=== PATIENT | female | born 1995 | race Two or more races ===

== ENCOUNTER 2020-07-28 13:53 | Outpatient (REF) | payer OTHER, SELFPAY ==
[2020-07-28 15:00] LABS: COVID-19 Test Negative (Negative)
== END 2020-07-28 13:54 | disposition home or self-care (01) ==
LOC: HO.EMPCOV 13:53
PROVIDERS: Visit Provider Internal Medicine
DX: Z20.828 Contact with and (suspected) exposure to other viral communicable diseases (principal)
CPT/HCPCS: 87635; C9803

== ENCOUNTER 2020-09-02 16:01 | Outpatient (REF) | payer OTHER, SELFPAY ==
[2020-09-02 18:11] LABS: COVID-19 Test Negative (Negative)
== END 2020-09-02 16:02 | disposition home or self-care (01) ==
LOC: HO.EMPCOV 16:01
PROVIDERS: Visit Provider Internal Medicine
DX: Z20.828 Contact with and (suspected) exposure to other viral communicable diseases (principal)
CPT/HCPCS: 87635; C9803

== ENCOUNTER 2020-10-10 10:32 | Outpatient (REF) | payer OTHER, SELFPAY ==
[2020-10-10 10:48] LABS: COVID-19 Test Negative (Negative)
== END 2020-10-10 10:33 | disposition home or self-care (01) ==
LOC: HO.LAB 10:32
PROVIDERS: Visit Provider Internal Medicine
DX: Z20.822 Contact with and (suspected) exposure to COVID-19 (principal)
CPT/HCPCS: 36415; 87635; C9803

== ENCOUNTER 2021-03-23 08:02 | Emergency (ER) | payer OTHER, SELFPAY ==
[2021-03-23 08:05] VITALS: BP 111/88; PULSE 60; RESP 18; TEMP 36.8; O2SAT 99; BMI 27.3
[2021-03-23 08:35] LABS: COVID-19 Test Negative (Negative)
--- NOTE | 2021-03-23 09:21 | ED_ITS ---
HPI - URI/Sore Throat General Chief Complaint: Headache Stated Complaint: migraine, congestion, sore throat Time Seen by Provider: 03/23/21 09:17 Source: patient Mode of arrival: ambulatory Limitations: no limitations History of Present Illness MD elicited complaint: rhinorrhea, nasal congestion, sinus pain and other (Migraine headaches) Onset (ago): day(s) (Three days ago) Consistency: constant Severity: moderate Description of mucous: clear, watery and yellow Able to tolerate fluids by mouth: Yes Exacerbating factors: changing head position and leaning forward Relieving factors: other (Patient prescribed Fioricet for her migraine headaches although only mild symptomatic relief then she starts getting sinus pressure) Associated symptoms: denies other symptoms Treatments prior to arrival: none Related Data Previous Rx's Medication Instructions Recorded amoxicillin-pot clavulanate 1 tab PO BID 10 Days #20 tab 03/23/21 [Augmentin] mlhjxddlzj-offfcnepfetcd-tkyd 1 cap PO Q8H PRN #10 cap 03/23/21 [Fioricet] dexamethasone [Decadron] 6 mg PO ONCE #1 tab 03/23/21 fluticasone propionate [Flonase 1 spray INTRANASAL BID #16 g 03/23/21 Allergy Relief] Allergies Allergy/AdvReac Type Severity Reaction Status Date / Time No Known Allergies Allergy Unverified 05/22/20 16:40 Review of Systems Review of Systems: Constitutional : No Fever, No Chills, No fatigue, No Malaise ENT/Mouth : Positive rhinorrhea/nasal congestion/sinus pressure, No sore throat Eyes: No Discharge Cardiovascular : No Chest Pain, No SOB Respiratory : No Cough, No Sputum, No Wheezing, No Smoke Exposure, No Dyspnea Gastrointestinal : No Nausea, No Vomiting, No Diarrhea Genitourinary : No irregular bleeding, No Dysuria, No Urinary Frequency, No Hematuria, No Urinary Incontinence, No Urgency, No Flank Pain, Musculoskeletal : No Myalgia Skin : No rash Neuro : Positive Headache Yes all other systems are reviewed and are negative [facility] Past Medical History Attestation statement: The following information was validated with the patient. Medical History Asthma COVID Migraines Social History Social History Advance Directives: No Advance Directives Information Provided: No Patient : No Physical Exam Vital Signs: Vital Signs: Last Vital Signs Temp 98.2 F 03/23/21 08:05 Pulse 60 03/23/21 08:05 Resp 18 03/23/21 08:05 BP 111/88 03/23/21 08:05 Pulse Ox 99 03/23/21 08:05 Body Mass Index 27.3 vital signs have been reviewed as normal and appeared to be correct. Blood pressure normal. Heart rate normal. Respiration rate normal. Temperature normal. Oxygen saturation normal. Appearance: Alert. Oriented X3. No acute distress. Head: Normal external exam. Normocephalic. Atraumatic. Eyes: PERRLA. EOMI. Conjunctiva and sclera normal. Eyelids normal. ENT: EAC normal. TM's Normal. Patient with tenderness to palpation to the frontal/ethmoid sinuses. Pharynx normal. Uvula midline. Moist mucous membranes. No trismus noted. No drooling noted. No muffled voice noted. Neck: Normal inspection. Neck supple. FROM. No adenopathy. Thyroid Normal. No meningeal signs. No neck mass noted. CVS: Normal heart rate and rhythm. Heart sound normal. Pulses normal throughout. No murmurs/rales/gallops. Respiratory: No respiratory distress. Painless inspiration. Breath sounds normal. No wheezes/rales/rhonchi noted. Chest nontender. No accessory muscle usage noted or decreased air movement noted. Back: Full range of motion noted. No rashes/lesion/induration/fluctuance or signs of infection noted. Skin: Skin warm and dry. Normal skin color. Normal skin turgor. No rashes/lesions/lacerations noted. Extremities:Extremities exhibit normal range of motion. Extremities nontender. Neuro: Oriented X 3. No motor deficit. No sensory deficit. Reflexes normal. Normal steady gait. No focal neuro deficits noted. Vascular: + radial pulses/+ 2 distal pedal pulses/+2 dorsalis pedis b/l. Normal cap refill. No cyanosis noted to upper extremity nails and lower extremity toes nails. Course Course Course Narrative: 25-year-old female with a past medical history of migraine headaches presenting to the ED with complaints of URI symptoms with intermittent headaches despite taking her Fioricet. Denies recent travel or sick contacts. Denies any other symptoms complaints or concerns at this time. Patient with sinusitis will DC home with symptomatic treatment along with instructions return if any new or worsening symptoms to follow up with primary care provider. Patient understands agrees with this plan. MDM - URI/Sore Throat Medical Records Attestation: I reviewed the patient's medical records. Lab Data Attestation: I reviewed the patient's lab results. Labs: Lab Results 03/23/21 Range/Units 08:10 COVID-19 ([facility]) Negative (Negative) COVID-19 Clin Com See Note Discharge Plan Discharge Clinical Impression: Sinusitis Patient Disposition: Home, Self-Care Instructions: Sinusitis (ED) Prescriptions: New amoxicillin-pot clavulanate [Augmentin] 875-125 mg tablet 1 tab PO BID 10 Days Qty: 20 RF: 0 bjiopdxtbt-vfiznvmqmsini-fgkx [Fioricet] 50-300-40 mg capsule 1 cap PO Q8H PRN (Reason: pain) Qty: 10 RF: 0 dexamethasone [Decadron] 6 mg tablet 6 mg PO ONCE Qty: 1 RF: 0 fluticasone propionate [Flonase Allergy Relief] 50 mcg/actuation spray,suspension 1 spray intranasal BID Qty: 16 RF: 0 Referrals: Sosa Cortes MD [Primary Care Provider] - 2 days Stand Alone Forms: Work/School Release Print Language: Georgian
== END 2021-03-23 09:46 | disposition home or self-care (01) ==
PROVIDERS: Emergency Provider Emergency Medicine; PCP Internal Medicine
DX: J32.9 Chronic sinusitis, unspecified (principal); J45.909 Unspecified asthma, uncomplicated; Z20.822 Contact with and (suspected) exposure to COVID-19
CPT/HCPCS: 36415; 87635; 99283

== ENCOUNTER → 2021-04-30 11:21 | Outpatient (BNVA) | payer SELFPAY | PROVIDERS: PCP Internal Medicine | DX: Z20.822 Contact with and (suspected) exposure to COVID-19 (principal) | CPT/HCPCS: 36415; 87635 ==

== ENCOUNTER 2021-06-27 08:46 | Emergency (ER) | payer OTHER, SELFPAY ==
--- NOTE | ~2021-06-27 | XR_ITS ---
EXAMINATION: XR CHEST CLINICAL INFORMATION: Cough COMPARISON: 11/04/2013 TECHNIQUE: Frontal view of the chest was obtained. FINDINGS: No significant abnormality is noted involving the heart, lungs, mediastinum, bony thorax or soft tissues. XR/XR chest 1V IMPRESSION: Unremarkable examination.
[2021-06-27 08:48] VITALS: BP 115/69; PULSE 80; RESP 16; TEMP 36.8; O2SAT 100; BMI 26.5
--- NOTE | 2021-06-27 09:38 | ED_ITS ---
HPI - General Adult General Chief complaint: Upper Respiratory Symptoms Stated complaint: cough Time Seen by Provider: 06/27/21 09:37 Source: patient Mode of arrival: ambulatory Limitations: no limitations History of Present Illness HPI narrative: 25-year-old fair male with past medical history of childhood asthma is here today for cold symptoms. Patient reports that her symptoms have been going on for the last 2 weeks. Patient started with congestion now she is coughing. Last night patient was waking up coughing all night. She used her father's a rescue inhaler to help with symptoms. Patient denies any shortness of breath, wheezing, dyspnea. Denies any subjective fevers. Patient reports that she spit up ramirez like sputum this morning. Patient denies any chest pain, palpitations, headache, earache, sore throat, difficulty swallowing. Related Data Previous Rx's Medication Instructions Recorded amoxicillin 875 mg-potassium 1 tab PO BID 10 Days #20 tab 03/23/21 clavulanate 125 mg tablet (Augmentin) pzmwketmyf-wchgddyyjgtee-njdyvjqk 1 cap PO Q8H PRN #10 cap 03/23/21 50 mg-300 mg-40 mg capsule (Fioricet) dexamethasone 6 mg tablet 6 mg PO ONCE #1 tab 03/23/21 (Decadron) fluticasone propionate 50 1 spray INTRANASAL BID #16 g 03/23/21 mcg/actuation nasal spray,suspension (Flonase Allergy Relief) albuterol sulfate 90 mcg/actuation 1 inh INHALATION QID PRN #8.5 g 06/27/21 aerosol inhaler azithromycin 250 mg tablet 250 mg PO DAILY 5 Days #4 tab 06/27/21 benzonatate 100 mg capsule 100 mg PO TID PRN #30 cap 06/27/21 (Tessalon Perles) fluticasone propionate 50 1 spray INTRANASAL BID #16 g 06/27/21 mcg/actuation nasal spray,suspension (Flonase Allergy Relief) loratadine 10 mg tablet 10 mg PO DAILY PRN #20 tab 06/27/21 Allergies Allergy/AdvReac Type Severity Reaction Status Date / Time No Known Allergies Allergy Unverified 05/22/20 16:40 Review of Systems Review of Systems: Constitutional : No Weight loss, No Fever, No Chills, No Night Sweats, No Fatigue, No Malaise ENT/Mouth : No Hearing loss, No Ear Pain, Nasal Congestion, No Sinus Pain, No Hoarseness, No sore throat, No Rhinorrhea, No Swallowing Difficulty Eyes: No Eye Pain, No Swelling, No Redness, No Foreign Body, No Discharge, No Vision Changes Cardiovascular : No Chest Pain, No SOB, No Dyspnea on Exertion, No Orthopnea, No Edema, No Palpitations Respiratory : Cough, ramirez Sputum, No Wheezing, No Smoke Exposure, No Dyspnea Gastrointestinal : No Nausea, No Vomiting, No Diarrhea, No Constipation, No abdominal Pain, No Hematochezia, No Melena Genitourinary : no irregular bleeding, No Dysuria, No Urinary Frequency, No Hematuria, No Urinary Incontinence, No Urgency, No Flank Pain, No Urinary Flow Changes, No Hesitancy Musculoskeletal : No joint pain, No Myalgias, No Joint Swelling Skin : No Skin Lesions, No rash Neuro : No Weakness, No Numbness, No Paresthesias, No Loss of Consciousness, No Dizziness, No Headache Psych : No Anxiety/Panic, No Depression, No SI/HI/AH/VH, No Social Issues, Heme/Lymph: No Bruising, No Bleeding,No Lymphadenopathy Endocrine : No Polyuria, No Polydipsia, No Temperature Intolerance Yes all other systems are reviewed and are negative PMFSH Past Medical History Medical History Asthma COVID Migraines Social History Social History Advance Directives: No Patient : No Physical Exam Vital Signs: Vital Signs: Last Vital Signs Temp 98.3 F 06/27/21 08:48 Pulse 80 06/27/21 08:48 Resp 16 06/27/21 08:48 BP 115/69 06/27/21 08:48 Pulse Ox 100 06/27/21 08:48 Body Mass Index 26.5 Const: General: healthy appearing, no acute distress and well developed Nutritional Appearance: well nourished Orientation/consciousness: patient oriented x3 HENMT: Head: Yes normal to inspection, Yes normocephalic and Yes atraumatic Ears: hearing grossly normal bilaterally, right TM abnormal, TM normal on the left and TM abnormal with fluid behind the TM General nose exam: Normal external nose present Mouth: Normal oral and palatal mucosa present Throat: Yes posterior oropharynx normal Eyes: General: appearance normal, both eyes and all related structures Neck: Neck: Yes normal visual inspection, Yes full ROM and Yes trachea midline Thyroid: Thyroid normal Resp: Effort & Inspection: normal respiratory effort and able to speak in complete sentences Auscultation: clear to auscultation bilaterally Cardio: Rate: regular rate Rhythm: regular rhythm GI: Inspection: Yes normal to inspection and No distended Palpation (GI): Soft to palpation, nontender, no guarding and No hepatosplenomegaly present Auscultation: normal bowel sounds Skin: General skin exam: elasticity normal, turgor normal and dry skin Neuro: General: patient oriented x3 Course Course Course Narrative: 25 years old female with past medical history of childhood asthma it is here today for lingering cold like symptoms. Patient reports that her symptoms started with congestion 2 weeks ago. Patient was tested for COVID about a week ago and was negative. Last night patient was unable to sleep due to coughing all night. This morning she was coughing up ramirez sputum. Used her father's rescue inhaler last night. Patient denies having any shortness of breath, dyspnea, difficulty swallowing. Denies any earaches, chest pain, rib pain. Will give her script for Tessalon Perles. Awaiting COVID test. Chest x- ray ordered and is negative. Mild right year infection, will give her script for Flonase, Z-Rich, will send her home with inhaler. Reevaluation(s) Reevaluation #1: Albuterol 2 puffs with spacer. Patient denies any CP, wheezing, dyspnea. Cough controlled with Tessalon Perles. Swab negative for COVID, RSV, flu. Patient will be sent home rest, drink plenty fluids. Take medications as ordered. Finish all your antibiotics. Discussed with patient that if her symptoms will get worse to return to emergency department. She was given the opportunity to ask questions and all questions answered. Medical Decision Making Lab Data Labs: Lab Results 06/27/21 Range/Units 09:12 Coronavirus (PCR) NEGATIVE (Negative) Influenza Type A (PCR) NEGATIVE (Negative) Influenza Type B (PCR) NEGATIVE (Negative) RSV RNA Qual (PCR) NEGATIVE (Negative) Imaging Data Chest x-ray: Attestation: I personally reviewed and interpreted this imaging study as follows: Radiologist's impression: FINDINGS: No significant abnormality is noted involving the heart, lungs, mediastinum, bony thorax or soft tissues. XR/XR chest 1V IMPRESSION: Unremarkable examination. ? Discharge Plan Discharge Clinical Impression: Viral infection Otitis media Qualifiers: Otitis media type: unspecified Chronicity: acute Qualified Code(s): H66.90 - Otitis media, unspecified, unspecified ear Patient Disposition: Home, Self-Care Instructions: Viral Syndrome (ED) Additional Instructions: You were seen here today for upper respiratory symptoms. You have mild ear infection. Please make sure to drink plenty fluids. You were started on antibiotics. You were given script for Tessalon Perles for cough. Flonase use as directed. You may take loratadine daily to decrease the symptoms of congestion. You may return to emergency department if your symptoms will get worse or if you will experience any additional concerning symptoms. Prescriptions: New azithromycin 250 mg tablet 250 mg PO DAILY 5 Days Qty: 4 RF: 0 benzonatate [Tessalon Perles] 100 mg capsule 100 mg PO TID PRN (Reason: cough) Qty: 30 RF: 0 fluticasone propionate [Flonase Allergy Relief] 50 mcg/actuation spray,suspension 1 spray intranasal BID Qty: 16 RF: 0 loratadine 10 mg tablet 10 mg PO DAILY PRN (Reason: allergy symptoms) Qty: 20 RF: 0 albuterol sulfate 90 mcg/actuation HFA aerosol inhaler 1 inh inhalation QID PRN (Reason: shortness of breath or wheezing) Qty: 8.5 RF: 0 No Action amoxicillin-pot clavulanate [Augmentin] 875-125 mg tablet 1 tab PO BID 10 Days Qty: 20 RF: 0 tqkhfqoppj-asqunstbpqxnc-vhgg [Fioricet] 50-300-40 mg capsule 1 cap PO Q8H PRN (Reason: pain) Qty: 10 RF: 0 dexamethasone [Decadron] 6 mg tablet 6 mg PO ONCE Qty: 1 RF: 0 fluticasone propionate [Flonase Allergy Relief] 50 mcg/actuation spray,suspension 1 spray intranasal BID Qty: 16 RF: 0 Referrals: Sosa Cortes MD [Primary Care Provider] - 2 days Stand Alone Forms: Work/School Release Interventions: ED Discharge Assessment Last Done: 06/27/21 11:46 Discharge Date/Time: 06/27/21 11:47
[2021-06-27] MEDS: Azithromycin 500 MG TABLET PO (09:45)
[2021-06-27] MEDS: Benzonatate 100 MG CAPSULE PO (09:45)
[2021-06-27] MEDS: Albuterol Sulfate 90 MCG 8 GM INHALER 2 PUFF INHALE (10:09)
[2021-06-27 10:31] LABS: Influenza A PCR NEGATIVE (Negative); Influenza B PCR NEGATIVE (Negative); Resp Syncy Virus RNA Qual PCR NEGATIVE (Negative); SARS COV2 PCR INHOUSE NEGATIVE (Negative)
== END 2021-06-27 11:47 | disposition home or self-care (01) ==
PROVIDERS: Emergency Provider Emergency Medicine; PCP Internal Medicine
DX: B34.9 Viral infection, unspecified (principal); H66.90 Otitis media, unspecified, unspecified ear; R05.9 Cough, unspecified; Z20.822 Contact with and (suspected) exposure to COVID-19; Z79.899 Other long term (current) drug therapy
CPT/HCPCS: 0241U; 36415; 71045; 99283; 99284

== ENCOUNTER 2021-09-18 08:54 | Outpatient (REF) | payer OTHER, SELFPAY ==
[2021-09-18 09:11] LABS: MANUAL DIFF FLAG NO
[2021-09-18 09:52] LABS: Basophils Percent Auto 0.3 % (0-2); Eosinophils Absolute Auto 0.1 X10*3/uL (0.0-0.4); Eosinophils Percent Auto 2.1 % (0-4); Hematocrit 40.2 % (37.0-47.0); Hemoglobin 13.4 g/dl (12.0-16.0); Imm Gran Abs Auto 0.02 X10*3/uL (0.00-0.03); Imm Gran Pct Auto 0.3 % (0.0-0.4); Lymphocytes Absolute Auto 1.7 X10*3/uL (1.2-4.9); Lymphocytes Percent Auto 26.3 % (20-40); Mean Corpuscular HGB Conc 33.3 g/dl (31.0-35.0); Mean Corpuscular Hemoglobin 30.7 pg (27.0-33.0); Mean Corpuscular Volume 92.2 fL (80.0-98.0); Mean Platelet Volume 12.2 fL (9.4-12.3); Monocytes Absolute Auto 0.5 X10*3/uL (0.1-1.2); Neutrophils Absolute Auto 4.2 x10*3/uL (2.0-8.3); Platelet Count 215 X10*3/uL (160-400); Red Blood Count 4.36 X10*6/uL (4.20-5.50); Red Cell Distribution Width 12.6 % (11.0-16.0); White Blood Count 6.6 X10*3/uL (4.8-10.8)
[2021-09-18 10:45] LABS: Thyroid Stimulating Hormone 1.11 uIU/mL (0.32-4.0)
== END 2021-09-18 08:55 | disposition home or self-care (01) ==
LOC: HO.LAB 08:54
PROVIDERS: PCP Internal Medicine; Visit Provider Obstetrics & Gynecology
DX: R53.83 Other fatigue (principal)
CPT/HCPCS: 36415; 84443; 85025

== ENCOUNTER → 2021-10-14 10:50 | Outpatient (BNVA) | payer OTHER, SELFPAY | PROVIDERS: Visit Provider Surgery | DX: K64.5 Perianal venous thrombosis (principal) | CPT/HCPCS: 46083 ==

== ENCOUNTER → 2021-10-15 09:38 | Outpatient (BNVA) | payer OTHER, SELFPAY | PROVIDERS: Visit Provider Surgery | DX: K64.5 Perianal venous thrombosis (principal) | CPT/HCPCS: 46083 ==

== ENCOUNTER → 2021-11-24 09:52 | Outpatient (BNVA) | payer OTHER, SELFPAY | PROVIDERS: PCP Internal Medicine; Visit Provider Nurse Practitioner Family | DX: K59.00 Constipation, unspecified (principal); K64.5 Perianal venous thrombosis; Z79.899 Other long term (current) drug therapy | CPT/HCPCS: Q3014 ==

== ENCOUNTER 2021-12-23 11:56 | Outpatient (REF) | payer OTHER, SELFPAY ==
[2021-12-23 13:45] LABS: Alanine Aminotransferase 15 U/L (0-31); Albumin Level 4.5 g/dL (3.5-5.0); Alkaline Phosphatase 66 U/L (39-117); Anion Gap 13 (12-20); Aspartate Amino Transferase 20 U/L (5-31); Bilirubin Total 0.6 mg/dL (0.0-1.0); Blood Urea Nitrogen 8 mg/dL (9-16); C Reactive Protein 0.14 mg/dL (< or = 0.50); Carbon Dioxide 26 mmol/L (22-29); Chloride 105 mmol/L (96-108); Estimated Glomerular Filt Rate > 60; Glucose Random 83 mg/dL (60-115); Lipase 27 U/L (8-78); Potassium 4.5 mmol/L (3.3-5.1); Sodium 139 mmol/L (135-145); Total Protein 7.6 g/dL (6.5-8.0)
[2021-12-23 13:53] LABS: TSH reflex Free T4 1.33 uIU/mL (0.32-4.0)
[2021-12-23 14:16] LABS: Folate 8.8 ng/mL (> or = 4.0); Vitamin B12 369 pg/mL (200-900)
[2021-12-25 11:56] LABS: Transglutaminase Ab IgG <1.0 U/mL; Transglutaminase IgA <1.0 U/mL
[2021-12-25 12:16] LABS: H Pylori Breath Test Negative (Negative)
[2021-12-27 14:11] LABS: Vitamin D 25-OH, D2 <4 ng/mL; Vitamin D 25-OH, D3 11 ng/mL; Vitamin D 25-OH, Total 11 ng/mL (30-100)
== END 2021-12-23 11:57 | disposition home or self-care (01) ==
LOC: HO.LAB 11:56
PROVIDERS: PCP Internal Medicine; Visit Provider Nurse Practitioner Family
DX: R10.13 Epigastric pain (principal); R10.9 Unspecified abdominal pain; E55.9 Vitamin D deficiency, unspecified; R19.7 Diarrhea, unspecified; K58.9 Irritable bowel syndrome, unspecified
CPT/HCPCS: 36415; 80053; 82306; 82607; 82746; 83013; 83690; 84443; 86140; 86364

== ENCOUNTER → 2022-01-12 08:51 | Outpatient (BNVA) | payer OTHER, SELFPAY | PROVIDERS: PCP Internal Medicine; Visit Provider Psychiatry & Neurology Neurology | DX: Z13.89 Encounter for screening for other disorder (principal) ==

== ENCOUNTER → 2022-01-13 16:11 | Outpatient (BNVA) | payer OTHER, SELFPAY | PROVIDERS: PCP Internal Medicine; Visit Provider Surgery | DX: K64.9 Unspecified hemorrhoids (principal) | CPT/HCPCS: 46600 ==

== ENCOUNTER 2022-05-31 10:32 | Emergency (ER) | payer OTHER, SELFPAY ==
[2022-05-31 11:18] VITALS: BP 120/61; PULSE 60; RESP 18; TEMP 36; O2SAT 100; BMI 26.4
[2022-05-31 11:42] LABS: Appearance Urine Clear; Color Urine Yellow; Glucose Urine UA Negative (Negative); Leukocyte Esterase Urine Small (1+) (Negative); Nitrite Urine Negative (Negative); UMIC TRIGGER UACC YES; Urine Blood Negative (Negative); Urine Ketones Negative (Negative); Urine Protein Negative (Neg-Trace)
[2022-05-31 11:57] LABS: Bacteria Urine 1+ (None Seen); Hyaline Casts Urine 0-2 /LPF (0-2); UACC Culture Trigger YES; WBC Urine 0-5 /HPF (0-5)
== END 2022-05-31 16:13 | disposition left against medical advice (07) ==
PROVIDERS: Emergency Provider Emergency Medicine; PCP Internal Medicine
DX: R51.9 Headache, unspecified (principal)
CPT/HCPCS: 81001; 87086; 99282

== ENCOUNTER 2022-06-02 10:34 | Outpatient (REF) | payer OTHER, SELFPAY ==
--- NOTE | ~2022-06-02 | MR_ITS ---
MRI OF THE BRAIN WITHOUT IV CONTRAST INDICATION: Headache. COMPARISON: None available. TECHNIQUE: Multiplanar multisequence MR imaging of the brain was obtained without IV contrast. FINDINGS: There is no hydrocephalus, extra-axial surface collection, or herniation. No parenchymal signal abnormality. The major flow voids at the skull base are preserved. There is no acute infarct on diffusion-weighted imaging. There is no intracranial hemorrhage on the gradient recalled echo acquisition. The midline structures are normal. The cerebellar tonsils are normally positioned. The cerebellum and brainstem are normal. The craniocervical junction is normal. Osseous marrow signal intensity is homogenous. The visualized soft tissues are unremarkable. MR/MR head/brain wo con IMPRESSION: Unremarkable noncontrast MRI of the brain.
== END 2022-06-02 10:35 | disposition home or self-care (01) ==
LOC: HO.MRI 10:34
PROVIDERS: Visit Provider Nurse Practitioner Family
DX: G43.109 Migraine with aura, not intractable, without status migrainosus (principal)
CPT/HCPCS: 70551

== ENCOUNTER 2022-08-02 14:35 | Outpatient (REF) | payer OTHER, SELFPAY ==
[2022-08-02 14:54] LABS: Strep A Nucleic Acid Positive (Negative)
== END 2022-08-02 14:36 | disposition home or self-care (01) ==
LOC: HO.LAB 14:35
PROVIDERS: Visit Provider Internal Medicine Cardiovascular Disease
DX: J02.9 Acute pharyngitis, unspecified (principal)
CPT/HCPCS: 36415; 87651

== ENCOUNTER → 2023-02-07 09:56 | Outpatient (BNVA) | payer OTHER, SELFPAY | PROVIDERS: PCP Internal Medicine; Visit Provider Nurse Practitioner Family ==

== ENCOUNTER 2023-04-06 15:08 | Outpatient (AMB) | payer OTHER, SELFPAY ==
--- NOTE | 2023-04-06 15:12 | AM.OFFWIN_ITS ---
Intake Vital Signs 04/06/23 15:15 BP 114/70 Blood Pressure Location Lt brachial Position Sitting Pulse 54 Pulse Source Pulse Oximeter Temp 98.1 F Temp Source Temporal Artery Scan Pulse Oximetry (%) 97 Oxygen Delivery Method Room Air Intake Visit Reasons: [employer], cough (masked)(lobby) Intake Note: Patient here because she had a cold last week w/congestion, now has a dry cough, chest hurts from coughing, and now has less congestion than last week. Patient Tobacco Use Status: Never used Tobacco Allergies erenumab-aooe [From Aimovig Autoinjector] Adverse Reaction (Severe, Verified 04/06/23 15:40) Constipation galcanezumab-gnlm [From Emgality Pen] Adverse Reaction (Intermediate, Verified 04/06/23 15:40) Injection site rash sumatriptan Adverse Reaction (Mild, Verified 04/06/23 15:40) Jaw Pain propranolol Adverse Reaction (Verified 04/06/23 15:40) Bradycardia Medication List - Last Reconciled 04/06/23 by Fernando Mejía MD albuterol sulfate 90 mcg/actuation 1 inh inhalation QID PRN oepxyljojm-raymwuypcbrxb-zcxg 50-300-40 mg (Fioricet) 1 cap PO Q6H PRN 30 days frovatriptan 2.5 mg orally 1 atb qd-bid x's 6 days prn menstrual migraine PRN; 30 days magnesium oxide 400 mg PO BEDTIME 30 days ondansetron HCl 4 mg PO Q6H PRN 30 days riboflavin (vitamin B2) 400 mg (4 x 100 mg) PO DAILY 30 days rizatriptan 10 mg PO Q2H PRN 30 days Do you need a note to return to daycare/school/sports/work: Yes HPI [employer], cough (masked)(lobby) HPI Details 27-year-old female presents to the office for a sick visit. 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 Next a Patient is reporting symptoms of an irritating nonproductive cough for the past 2 weeks. It started off as a sinus cold and all symptoms resolved except the cough. She has history of asthma during her childhood. Currently on no medications. [facility] Medical History (Updated 04/06/23 @ 15:43 by Fernando Mejía MD) Asthma Bleeding hemorrhoids COVID Migraines Thrombosed external hemorrhoid Surgical History (Updated 02/07/23 @ 10:07 by Jodie Mike CMA) History of section [place] teeth extracted Family History Father Asthma Diabetes HTN (hypertension) High cholesterol Acute arthritis Mother Migraine HTN (hypertension) Acute arthritis Maternal Grandfather HTN (hypertension) High cholesterol CHF (congestive heart failure) Stroke Social History Household Members Other:: DAUGHTER Alcohol intake: current Alcohol intake frequency: holidays/special occasions only Patient Tobacco Use Status: Never used Tobacco Current occupational status: employed Current occupation: [employer] Physical Exam Vital Signs: Last Vital Signs Temp 98.1 F 04/06/23 15:15 Pulse 54 04/06/23 15:15 BP 114/70 04/06/23 15:15 Pulse Ox 97 04/06/23 15:15 Oxygen Delivery Method Room Air 04/06/23 15:15 Const General: cooperative and healthy appearing Nutritional Appearance: well nourished Orientation/consciousness: patient oriented x3 Limitations: no limitations HEENT Head: Yes normal to inspection Eyes General: appearance normal, both eyes and all related structures Neck Neck: Yes normal visual inspection Chest Chest palpation & inspection: normal palpation of entire chest wall Resp Effort & Inspection: normal respiratory effort Neuro General: patient oriented x3 Assessment & Plan Assessment & Plan (1) Cough: Code(s): R05.9 - Cough, unspecified Plan: Most likely due to reactive airway disease. Prednisone and albuterol called in. If symptoms do not improve to follow-up here. No antibiotics needed. Coding Level of Care Code Est Pt Level 3 (95510) Diagnoses Cough R05.9
[2023-04-06 15:15] VITALS: BP 114/70; PULSE 54; TEMP 36.7; O2SAT 97
== END 2023-04-06 15:39 | disposition home or self-care (01) ==
PROVIDERS: PCP Internal Medicine; Visit Provider Internal Medicine
DX: R05.9 Cough, unspecified (principal)
CPT/HCPCS: 99213

== ENCOUNTER 2023-04-09 06:17 | Emergency (ER) | payer OTHER, SELFPAY ==
--- NOTE | ~2023-04-09 | XR_ITS ---
EXAMINATION: XR chest 2V CLINICAL INFORMATION: Reason for Exam cough COMPARISON: 2020 TECHNIQUE: XR chest 2V Lungs and Sunni: Both lungs are clear. Pleura: Normal. Costophrenic angles are sharp. No pneumothorax. Heart: The heart is normal in size. Mediastinum: The mediastinum is within normal limits.. Bones: Skeletal structures included are normal for patient's age. XR/XR chest 2V IMPRESSION: No radiographic evidence of acute cardiopulmonary disease.
--- NOTE | 2023-04-09 06:45 | ECG_ITS ---
Test Reason : CHEST PAIN Blood Pressure : / mmHG Vent. Rate : 068 BPM Atrial Rate : 068 BPM P-R Int : 160 ms QRS Dur : 076 ms QT Int : 364 ms P-R-T Axes : 029 002 028 degrees QTc Int : 387 ms Normal sinus rhythm with sinus arrhythmia Normal ECG No previous ECGs available Referred By: Generic ED Physician Electronically Signed By:CRESENCIO ROCK
[2023-04-09 06:59] VITALS: BP 121/72; PULSE 70; RESP 18; TEMP 36.2; O2SAT 99; BMI 26.9
--- NOTE | 2023-04-09 07:29 | ED.CHESTPAIN ---
HPI - Chest Pain General Chief Complaint: Chest Pain Stated Complaint: cough chest pain Time Seen by Provider: 04/09/23 07:23 Source: patient Mode of arrival: ambulatory Limitations: no limitations History of Present Illness HPI narrative: 27 yo female with history of asthma, migraines present to the ER with dry cough, chest tightness since Tuesday. Went to Tuesday and given rx for prednisone 60mg x 3 days. Took one dose Tuesday, one dose . [place] it was causing palpitations, heart racing. and so yesterday she took a decreased dose of 40mg which she felt she tolerated better. Last week she had cough, congestion, cold which she feels resolved. Cough has lingered. She has been using albuterol MDI 4x daily. Did use her Tenrox albuterol nebulizer machine several times. Has not tried any cough medication. No fevers, chills, SOB, leg swelling or leg pain. No recent travel, recent surgeries, OCP use Related Data Previous Rx's Medication Instructions Recorded reciqyidrf-ykopkwovnalrd-yacmimej 1 cap PO Q6H PRN pain 30 days #20 02/07/23 50 mg-300 mg-40 mg capsule caps (Fioricet) frovatriptan 2.5 mg tablet 2.5 mg PO .COMPLEX PRN migraine 02/07/23 headache 30 days #12 tabs magnesium oxide 400 mg (241.3 mg 400 mg PO BEDTIME 30 days #30 tabs 02/07/23 magnesium) tablet ondansetron HCl 4 mg tablet 4 mg PO Q6H PRN nausea and 02/07/23 vomiting 30 days #30 tabs riboflavin (vitamin B2) 100 mg 400 mg PO DAILY 30 days #120 tabs 02/07/23 tablet rizatriptan 10 mg disintegrating 10 mg PO Q2H PRN migraine headache 02/07/23 tablet 30 days #12 tabs albuterol sulfate 90 mcg/actuation 1 inh inhalation QID PRN shortness 04/06/23 aerosol inhaler of breath or wheezing #8.5 grams prednisone 20 mg tablet 60 mg PO DAILY #9 tabs 04/06/23 benzonatate 200 mg capsule 200 mg PO TID PRN cough #20 caps 04/09/23 prednisone 20 mg tablet 40 mg PO DAILY #8 tabs 04/09/23 Allergies Allergy/AdvReac Type Severity Reaction Status Date / Time erenumab-aooe AdvReac Severe Constipatio Verified 04/09/23 07:03 [From Aimovig Autoinjector] n galcanezumab-gnlm AdvReac Intermediate Injection Verified 04/09/23 07:03 [From Emgality Pen] site rash sumatriptan AdvReac Mild Jaw Pain Verified 04/09/23 07:03 propranolol AdvReac Bradycardia Verified 04/09/23 07:03 Review of Systems Review of Systems: Yes all other systems are reviewed and are negative Constitutional: Constitutional: Reports no additional constitutional complaints, Denies body ache(s), Denies chills, Denies fever(s), Denies headache(s) and Denies weakness Eyes: Eyes: Reports no additional eye complaints and Denies change in vision ENT: Reports system reviewed and no additional complaints, except as documented, Denies dizziness, Denies headache(s), Denies nasal congestion, Denies nasal discharge and Denies neck pain Cardiovascular: Cardiovascular: Reports no additional cardiovascular complaints, Reports chest pain, Denies leg edema and Denies dyspnea Respiratory: Respiratory: Reports no additional respiratory complaints, Denies cough and Denies dyspnea Gastrointestinal: Gastrointestinal: Reports no additional gastrointestinal complaints, Denies abdominal pain, Denies diarrhea, Denies nausea and Denies vomiting Genitourinary: Genitourinary: Reports no additional female genitourinary complaints and Denies urinary incontinence Musculoskeletal: Musculoskeletal: Reports no additional musculoskeletal complaints, Denies back pain, Denies arthralgias, Denies joint swelling, Denies neck pain, Denies numbness and Denies tingling Integumentary/Breasts: Skin/Breast: Reports system reviewed and no additional complaints, except as docu and Denies rash Neurologic: Reports system reviewed and no additional complaints, except as documented, Denies Abnormal speech present, Denies dizziness, Denies headache(s), Denies numbness, Denies tingling and Denies weakness PMF Past Medical History Attestation statement: The following information was validated with the patient. Source: old records reviewed and nursing notes reviewed Medical History Asthma Bleeding hemorrhoids COVID Migraines Thrombosed external hemorrhoid Surgical History History of section [place] teeth extracted Family History Family History Father Asthma Diabetes HTN (hypertension) High cholesterol Acute arthritis Mother Migraine HTN (hypertension) Acute arthritis Maternal Grandfather HTN (hypertension) High cholesterol CHF (congestive heart failure) Stroke Social History Social History Household Members Other:: DAUGHTER Alcohol intake: current Alcohol intake frequency: holidays/special occasions only Patient Tobacco Use Status: Never used Tobacco Advance Directives: No Advance Directives Information Provided: No 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: Vital Signs: Last Vital Signs Temp 98.3 F 04/09/23 07:49 Pulse 65 04/09/23 07:49 Resp 14 04/09/23 07:49 BP 114/65 04/09/23 07:49 Pulse Ox 97 04/09/23 07:49 O2 Del Method Room Air 04/09/23 07:49 BMI result Body Mass Index 26.9 Const: General: cooperative, healthy appearing, comfortable and no acute distress Orientation/consciousness: patient oriented x3 Limitations: no limitations HEENT: Head: Yes normal to inspection Ears: hearing grossly normal bilaterally and TM's normal bilaterally General nose exam: Normal external nose present Face and sinus: Yes normal facial exam Mouth: Normal oral and palatal mucosa present Throat: Yes posterior oropharynx normal, Yes tonsils normal and Yes uvula midline Eyes: General: appearance normal, both eyes and all related structures Pupils: Equal, round and reactive pupils present Neck: Neck: Yes normal visual inspection, Yes full ROM, Yes no lymphadenopathy and Yes no meningeal signs Chest: Chest palpation & inspection: normal inspection of the chest Resp: Effort & Inspection: normal respiratory effort Auscultation: clear to auscultation bilaterally Cardio: Rate: regular rate Rhythm: regular rhythm Peripheral pulses: Peripheral pulses 2+ throughout GI: Inspection: Yes normal to inspection Palpation (GI): Soft to palpation and nontender Auscultation: normal bowel sounds Back/Spine/Pelvis: Thoracic/Lumbar Spine: thoracic and lumbar spine normal to inspection Skin: General skin exam: no rashes or lesions noted Neuro: General: patient oriented x3, no meningeal signs, no focal motor deficits and normal sensation to monofilament Cranial nerves: Yes Equal, round and reactive pupils present Cognition (Neuro): normal cognition Speech: No Abnormal speech present Gait exam (Neuro): Normal gait present Motor exam (neuro): 5/5 motor strength present throughout Extrem: General: Yes normal to inspection, Yes no pedal edema and Yes no calf tenderness Course Course Course Narrative: 0830-COVID and flu testing are negative. Chest x-ray shows no signs of pneumonia. Likely asthma exacerbation. Patient will be treated with additional course of prednisone, Tessalon p.r.n.. Reviewed worrisome signs and symptoms of when to return to the emergency room. Comfortable plan for discharge home Medical Decision Making Medical Decision Making MDM Narrative: 27 yo female with history of asthma, migraines presents to the ER with URI which resolved last week now with lingering cough x 6 days with chest tightness despite taking three days of prednisone and using albuterol. On arrival LS CTA, frequent cough noted. VSS. Will check covid/flu testing, CXR Had EKG in triage d/t complaints of chest tightness/palpitations. Differential Diagnosis Differential Diagnoses: The differential diagnosis associated with the presentation includes viral syndrome, asthma exacerbation low concern for PE-PERC 0 Lab Data [facility] Lab Attestation statement: I reviewed the patient's lab results. Labs: Lab Results 04/09/23 04/09/23 Range/Units 07:53 07:53 COVID-19 (MONICA) Negative (Negative) COVID-19 Clin Com See Note Influenza Type A (BEN) Negative (Negative) Influenza Type B (BEN) Negative (Negative) Influenza A & B Note See Note Independent Interpretation I performed an independent interpretation of an: EKG and Plain X-Ray Interpretation: I independently reviewed the EKG which shows NSR with rate 68, normal pr, normal qrs, normal qt I independently reviewed the CXR and agree with the rad report Radiology Impression Discussion of test interpretation with radiology: I have reviewed the radiologist's reading. Radiologist Impression: [address] [address] XRay Report Signed Patient: Shivani Mirza MR#: [id number] : 1995 Acct:[id number] Age/Sex: 27 / F ADM Date: 04/09/23 Loc: HO.ED Attending Dr: Ordering Physician: Alcira France NP Date of Service: 04/09/23 Procedure(s): XR chest 2V Accession Number(s): [id number] cc: Alcira France NP~ EXAMINATION: XR chest 2V CLINICAL INFORMATION: Reason for Exam cough COMPARISON: 2020? TECHNIQUE: XR chest 2V Lungs and Sunni: Both lungs are clear. Pleura: Normal. Costophrenic angles are sharp. No pneumothorax. Heart: The heart is normal in size. Mediastinum: The mediastinum is within normal limits.. Bones: Skeletal structures included are normal for patient's age. XR/XR chest 2V IMPRESSION: No radiographic evidence of acute cardiopulmonary disease. Discharge Plan Discharge Clinical Impression: Asthma exacerbation Patient Disposition: Home, Self-Care Instructions: Asthma (ED) Additional Instructions: Start prednisone tomorrow Chest x-ray is normal Covid and flu testing are negative Continue albuterol as needed Prescriptions: New prednisone 20 mg tablet 40 mg PO DAILY Qty: 8 0RF benzonatate 200 mg capsule 200 mg PO TID PRN (Reason: cough) Qty: 20 0RF No Action prednisone 20 mg tablet 60 mg PO DAILY Qty: 9 0RF albuterol sulfate 90 mcg/actuation HFA aerosol inhaler 1 inh inhalation QID PRN (Reason: shortness of breath or wheezing) Qty: 8.5 0RF frovatriptan 2.5 mg tablet 2.5 mg PO .COMPLEX PRN (Reason: migraine headache) 30 Days Qty: 12 3RF Rx Instructions: 2.5 mg orally 1 atb qd-bid x's 6 days prn menstrual migraine PRN; rizatriptan 10 mg tablet,disintegrating 10 mg PO Q2H PRN (Reason: migraine headache) 30 Days Qty: 12 6RF Rx Instructions: max 2 tabs per day/4 tabs per week oihbpgzpch-jlvucrbizpfcn-bfth [Fioricet] 50-300-40 mg capsule 1 cap PO Q6H PRN (Reason: pain) 30 Days Qty: 20 3RF Rx Instructions: max 2 caps per day/4 caps per week ondansetron HCl 4 mg tablet 4 mg PO Q6H PRN (Reason: nausea and vomiting) 30 Days Qty: 30 3RF riboflavin (vitamin B2) 100 mg tablet 400 mg PO DAILY 30 Days Qty: 120 6RF Rx Instructions: in am magnesium oxide 400 mg (241.3 mg magnesium) tablet 400 mg PO BEDTIME 30 Days Qty: 30 6RF Rx Instructions: may hold for loose stools Referrals: Sosa Cortes MD [Primary Care Provider] - 1 week (as needed)
[2023-04-09 07:49] VITALS: BP 114/65; PULSE 65; RESP 14; TEMP 36.8; O2SAT 97
[2023-04-09 08:18] LABS: COVID-19 Test Negative (Negative); IDNOW Serial# 08D9AD1C; IDNOW Serial# BCCEAD1C; Influenza A Negative (Negative); Influenza B2 Negative (Negative)
== END 2023-04-09 08:41 | disposition home or self-care (01) ==
PROVIDERS: Nurse Practitioner Family; Emergency Provider Emergency Medicine; PCP Internal Medicine
DX: J45.901 Unspecified asthma with (acute) exacerbation (principal); Z20.822 Contact with and (suspected) exposure to COVID-19
CPT/HCPCS: 71046; 87502; 87635; 93005; 99283; 99284

== ENCOUNTER → 2023-04-09 06:45 | Outpatient (BNV) | payer OTHER, SELFPAY | PROVIDERS: Emergency Provider Emergency Medicine; PCP Internal Medicine; Visit Provider Internal Medicine | DX: I49.9 Cardiac arrhythmia, unspecified (principal) | CPT/HCPCS: 93010 ==

== ENCOUNTER → 2023-06-10 08:03 | Outpatient (BNVA) | payer OTHER, SELFPAY | PROVIDERS: PCP Internal Medicine; Visit Provider Nurse Practitioner Family | DX: Z71.9 Counseling, unspecified (principal) | CPT/HCPCS: 99211 ==

== ENCOUNTER 2023-07-05 08:07 | Outpatient (AMB) | payer OTHER, SELFPAY ==
[2023-07-05 08:21] VITALS: BP 120/70; PULSE 68; TEMP 36.6; O2SAT 99; BMI 27.7
--- NOTE | 2023-07-05 08:21 | MHC.OFFWIV ---
Intake Vital Signs 07/05/23 08:21 Height 5 ft Weight 142 lb BMI 27.7 BP 120/70 Blood Pressure Location Lt brachial Position Sitting Pulse 68 Pulse Source Pulse Oximeter Temp 97.8 F Temp Source Temporal Artery Scan Pulse Oximetry (%) 99 Intake Visit Reasons: EP ?Strep Intake Note: pt is here for c/o possible strep Patient Tobacco Use Status: Never used Tobacco Allergies erenumab-aooe [From Aimovig Autoinjector] Adverse Reaction (Severe, Verified 07/05/23 08:58) Constipation galcanezumab-gnlm [From Emgality Pen] Adverse Reaction (Intermediate, Verified 07/05/23 08:58) Injection site rash sumatriptan Adverse Reaction (Mild, Verified 07/05/23 08:58) Jaw Pain propranolol Adverse Reaction (Verified 07/05/23 08:58) Bradycardia Medication List - Last Reconciled 07/05/23 by Fernando Mejía MD albuterol sulfate 90 mcg/actuation 1 inh inhalation QID PRN azithromycin take 500 mg today (day 1), then 250 mg for 4 days (days 2-5) PO lhmefsmvzw-ixlpxeuvtkhbg-ueks 50-300-40 mg (Fioricet) 1 cap PO Q6H PRN 30 days frovatriptan 2.5 mg orally 1 atb qd-bid x's 6 days prn menstrual migraine PRN; 30 days hydrocortisone 2.5% (Anusol-HC) 1 appl [place] BID-QID PRN magnesium oxide 400 mg PO BEDTIME 30 days ondansetron HCl 4 mg PO Q6H PRN 30 days riboflavin (vitamin B2) 400 mg (4 x 100 mg) PO DAILY 30 days rizatriptan 10 mg PO Q2H PRN 30 days Do you need a note to return to daycare/school/sports/work: Yes HPI EP ?Strep HPI Details Patient presents for a sick visit. Reporting symptoms of sinus congestion, sore throat and difficulty swallowing. Low-grade fever. No family member is sick. No recent travel. Patient reports symptoms of malaise and fatigue. 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: Last Vital Signs Temp 97.8 F 07/05/23 08:21 Pulse 68 07/05/23 08:21 BP 120/70 07/05/23 08:21 Pulse Ox 99 07/05/23 08:21 BMI result Body Mass Index 27.7 Const General: cooperative and healthy appearing Nutritional Appearance: well nourished Orientation/consciousness: patient oriented x3 Limitations: no limitations HEENT Head: Yes normal to inspection Eyes General: appearance normal, both eyes and all related structures Neck Neck: Yes normal visual inspection Chest Chest palpation & inspection: normal palpation of entire chest wall Resp Effort & Inspection: normal respiratory effort Neuro General: patient oriented x3 Results AMB Rapid Strep AMB Rapid Strep Positive Last Edit by Yovany Hamilton CMA on 07/05/23 08:32 Results Reviewed Results Reviewed: Laboratory Last Values Strep Scn Rapid Clinic Positive 07/05/23 08:31 Assessment & Plan Assessment & Plan (1) Strep throat: Code(s): J02.0 - Streptococcal pharyngitis Plan Antibiotics ordered. Increase fluid intake. Tylenol for aches and pains. If symptoms worsen, follow-up here for a recheck. Strep test was positive. Note for work given. Orders: Orders AMB Rapid Strep Screen Today Z13.9 - Encounter for screening, unspecified Medications: New azithromycin take 500 mg today (day 1), then 250 mg for 4 days (days 2-5) PO 6 tabs 0RF Coding Level of Care Code Est Pt Level 3 (14895) Diagnoses Strep throat J02.0
== END 2023-07-05 09:16 | disposition home or self-care (01) ==
PROVIDERS: PCP Internal Medicine; Visit Provider Internal Medicine
DX: J02.0 Streptococcal pharyngitis (principal); Z13.9 Encounter for screening, unspecified
CPT/HCPCS: 87880; 99213

== ENCOUNTER 2023-07-08 10:32 | Outpatient (AMB) | payer OTHER, SELFPAY ==
--- NOTE | 2023-07-08 10:36 | A.OFFVIS_ITS ---
Intake Intake Visit Reasons: hemorrhoids Intake Note: This patient presents for an assessment for hemorrhoids. Patient c/o; reports no changes. 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 Accompanied by: Self / Same As Patient Allergies erenumab-aooe [From Aimovig Autoinjector] Adverse Reaction (Severe, Verified 07/08/23 10:36) Constipation galcanezumab-gnlm [From Emgality Pen] Adverse Reaction (Intermediate, Verified 07/08/23 10:36) Injection site rash sumatriptan Adverse Reaction (Mild, Verified 07/08/23 10:36) Jaw Pain propranolol Adverse Reaction (Verified 07/08/23 10:36) Bradycardia Medication List - Last Reconciled 07/08/23 by Johny Mirza MD albuterol sulfate 90 mcg/actuation 1 inh inhalation QID PRN azithromycin take 500 mg today (day 1), then 250 mg for 4 days (days 2-5) PO wfnobvnevf-yawvrxdnjnzhe-smvv 50-300-40 mg (Fioricet) 1 cap PO Q6H PRN 30 days frovatriptan 2.5 mg orally 1 atb qd-bid x's 6 days prn menstrual migraine PRN; 30 days hydrocortisone 2.5% (Anusol-HC) 1 appl [place] BID-QID PRN magnesium oxide 400 mg PO BEDTIME 30 days ondansetron HCl 4 mg PO Q6H PRN 30 days riboflavin (vitamin B2) 400 mg (4 x 100 mg) PO DAILY 30 days rizatriptan 10 mg PO Q2H PRN 30 days HPI hemorrhoids HPI Details 27-year-old female here for hemorrhoid i ssues. She says that she has had this swollen hemorrhoid for the past week now. She describes discomfort. She says that she had pain for the 1st few days. This has since improved. However, she would describe significant prolapse during the day that causes a lot of discomfort. She is known to me for her hemorrhoids. I had done an I and D for most hemorrhoid last year. She has had occasional symptoms with this hemorrhoidal column. She also describes constipation. 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 Review of Systems Const Denies chills and Denies fever(s) Card Denies chest pain, Denies dyspnea and Denies dyspnea on exertion Resp Denies cough, Denies dyspnea and Denies dyspnea on exertion GI Denies hematochezia, Denies change in bowel habits and Reports constipation Denies hematuria Musc Denies back pain and Denies limited range of motion Neuro Denies focal weakness and Denies convulsions Psych Denies depression and Denies mood swings Physical Exam Const General: comfortable and no acute distress Orientation/consciousness: patient oriented x3 Neck Neck: Yes no lymphadenopathy Resp Auscultation: clear to auscultation bilaterally Cardio Rhythm: regular rhythm GI Other: Rectal exam shows a thrombosed hemorrhoid, about 1 cm, external, on the right anterolateral area; anoscopy deferred; prominent external hemorrhoids on the left noted as well, nonthrombosed Palpation (GI): Soft to palpation, nontender and no guarding Neuro General: patient oriented x3 Assessment & Plan Assessment & Plan (1) Thrombosed external hemorrhoid: Code(s): K64.5 - Perianal venous thrombosis Plan: She has another thrombosed external hemorrhoid on the right side. She is past the acute phase. She says that she has no severe pain but describes discomfort. I therefore told her that we will not do an I and D at this time as she has passed acute phase. I recommended continuing with hot Sitz baths. I did explain to her the option of hemorrhoidectomy in view of her recurrent problems. We will remove the hemorrhoidal columns on the left as well as she had problems with this in the past. I discussed the technique of this procedure. I reviewed the risks including but not limited to bleeding, infections, postop pain, as well as the benefits and alternatives. I explained to her what to expect postoperatively. She says she is going to call the office once she decides to proceed down the line. Coding Level of Care Code Est Pt Level 3 (97531) Diagnoses Thrombosed external hemorrhoid K64.5
== END 2023-07-08 10:42 | disposition home or self-care (01) ==
PROVIDERS: PCP Internal Medicine; Visit Provider Surgery
DX: K64.5 Perianal venous thrombosis (principal)
CPT/HCPCS: 99213

== ENCOUNTER → 2023-07-08 10:32 | Outpatient (BNVA) | payer OTHER, SELFPAY | PROVIDERS: PCP Internal Medicine; Visit Provider Surgery ==

== ENCOUNTER 2023-08-01 09:20 | Outpatient (AMB) | payer OTHER, SELFPAY ==
--- NOTE | 2023-08-01 09:20 | A.OFFVIS_ITS ---
Intake Intake Visit Reasons: follow up-LVM Intake Note: follow up visit. no issues or concerns. Allergies erenumab-aooe [From Aimovig Autoinjector] Adverse Reaction (Severe, Verified 08/01/23 09:21) Constipation galcanezumab-gnlm [From Emgality Pen] Adverse Reaction (Intermediate, Verified 08/01/23 09:21) Injection site rash sumatriptan Adverse Reaction (Mild, Verified 08/01/23 09:21) Jaw Pain propranolol Adverse Reaction (Verified 08/01/23 09:21) Bradycardia Medication List - Last Reconciled 08/01/23 by GALO Abdullahi albuterol sulfate 90 mcg/actuation 1 inh inhalation QID PRN fpweodtbtq-pjjipngjeftcl-ueia 50-300-40 mg (Fioricet) 1 cap PO Q6H PRN 30 days hydrocortisone 2.5% (Anusol-HC) 1 appl [place] BID-QID PRN ondansetron HCl 4 mg PO Q6H PRN 30 days rizatriptan 10 mg PO Q2H PRN 30 days HPI HPI Comments History of Present Illness Details 27-yr-old female presents for f/u [employer] sit. Pt continues to struggle w/ hemorrhoids and is trying to eat well and be compliant w/ her bowel regimen. She is overall being more mindful of her migraine triggers- avoiding alcohol, eating regularly, maintaining a good sleep schedule. She is scheduled to have her IUD changed tomorrow- she is hopeful this will reduce her migraine attacks as she has had more migraines since having increased breakthrough periods. She had a recent eye exam- was recently told she has a right eye astigmatism so will try contacts to correct this. Additionally, her eye glass prescription was too strong so that will be adjusted as well. She has had 5 severe migraine days in the last month. Using Rizatriptan prn. She has a more mild headache 3-4 x's per week- manages w/ Tylenol or Advil. 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 Review of Systems Const All systems reviewed & are unremarkable except as noted in HPI and below Physical Exam Const General: cooperative and no acute distress Orientation/consciousness: patient oriented x3 HEENT Head: Yes normocephalic Resp Effort & Inspection: normal respiratory effort and able to speak in complete sentences Neuro General: patient oriented x3 Cognition (Neuro): normal cognition Psych Appearance: grossly normal Mental Status: mental status grossly normal Speech and movement: Normal speech and movement present Affect: normal affect Attitude: cooperative Thought process: Normal thought process present Thought content: Normal thought content present Assessment & Plan Assessment & Plan (1) Chronic migraine with aura: Code(s): G43.109 - Migraine with aura, not intractable, without status migrainosus (2) Menstrual migraine: Code(s): G43.829 - Menstrual migraine, not intractable, without status migrainosus (3) Astigmatism, right: Code(s): H52.201 - Unspecified astigmatism, right eye Plan For acute migraine tx: Continue prn Rizatriptan- note causes some drowsiness. Fioricet prn- sparingly Zofran 4mg prn N/V. Previous tx trials- Nurtec helped some, Sumatriptan- jaw pain. Trudhessa sample- effective but does cause some nasal irritation. For menstrual Migraine: Monitor effect of changing IUD on migraine burden. For migraine prevention tx: Continue trigger avoidance as able. Monitor response to changing glasses prescription, tx'ing astigmatism, and replacing IUD. Hold Riboflavin and Magnesium. Future considerations- Botox, Vyepti 100mg IV q 3 months. Previous tx trials: Amitriptyline- constipation, Propranolol- bradycardia, Topiramate- did not tolerate, Aimovig- severe constipation, Emgality and Ajovy- injection site rash. f/u in 4 months or sooner prn. Telehealth Telehealth Location of provider rendering services: practice address Location of patient: address on file Patient Identification confirmed using: Name, : Yes Telehealth method: video Patient verbally consented to treatment: Yes Patient verbally consented to billing insurance company: Yes Patient informed of any privacy concerns related to visit: Yes Minutes spent on Phone/Video with Pt.: 14 Coding Level of Care Code Tele Est Pt Level 4 (19298) Diagnoses Chronic migraine with aura G43.109 Menstrual migraine G43.829 Astigmatism, right H52.201
== END 2023-08-01 10:49 | disposition home or self-care (01) ==
LOC: HO.HSMS 09:20
PROVIDERS: PCP Internal Medicine; Visit Provider Nurse Practitioner Family
DX: G43.109 Migraine with aura, not intractable, without status migrainosus (principal); G43.829 Menstrual migraine, not intractable, without status migrainosus; H52.201 Unspecified astigmatism, right eye
CPT/HCPCS: 99214

== ENCOUNTER → 2023-08-01 09:20 | Outpatient (BNVA) | payer OTHER, SELFPAY | PROVIDERS: PCP Internal Medicine; Visit Provider Nurse Practitioner Family ==

== ENCOUNTER 2023-08-13 15:33 | Emergency (ER) | payer OTHER, SELFPAY ==
--- NOTE | 2023-08-13 | ECG_ITS ---
Test Reason : CHEST TIGHTNESS Blood Pressure : / mmHG Vent. Rate : 068 BPM Atrial Rate : 068 BPM P-R Int : 132 ms QRS Dur : 088 ms QT Int : 414 ms P-R-T Axes : 037 013 036 degrees QTc Int : 440 ms Normal sinus rhythm with sinus arrhythmia Normal ECG When compared with ECG of 09-APR-2023 06:50, No significant changes seen Referred By: Jose De La Cruz Electronically Signed By:CRESENCIO ROCK
[2023-08-13 15:44] VITALS: BP 107/69; PULSE 69; RESP 19; TEMP 36.4; O2SAT 99; BMI 26.8
--- NOTE | 2023-08-13 15:44 | ED_ITS ---
HPI - Abdominal Pain General Chief Complaint: Nausea/Vomiting/Diarrhea Stated Complaint: vomiting,dehydrated Time Seen by Provider: 08/13/23 16:40 Source: patient Mode of arrival: ambulatory Limitations: no limitations History of Present Illness HPI narrative: This is a 28-year-old female history of sleep disorder, depression, migraines, presenting to the emergency department with complaints of nausea, vomiting status post heavy drinking last night for her birthday, she reports she only had 2 mo he does, she reports the past 12 hours she has not been able to keep anything down. She reports every when she when out with this feeling fine other than her. She thought it was just a hangover however she continues to not be able to keep anything down each time she tries to eat she ends up vomiting. No associated abdominal pain, headache, vision changes, chest pain, shortness of breath, changes in bowel habits or urinary habits Related Data Previous Rx's Medication Instructions Recorded biqakpojqw-zmhzshfaymxju-gdcatstx 1 cap PO Q6H PRN pain 30 days #20 02/07/23 50 mg-300 mg-40 mg capsule caps (Fioricet) ondansetron HCl 4 mg tablet 4 mg PO Q6H PRN nausea and 02/07/23 vomiting 30 days #30 tabs albuterol sulfate 90 mcg/actuation 1 inh inhalation QID PRN shortness 04/06/23 aerosol inhaler of breath or wheezing #8.5 grams rizatriptan 10 mg disintegrating 10 mg PO Q2H PRN migraine headache 05/18/23 tablet 30 days #12 tabs hydrocortisone 2.5 % topical cream 1 appl VA BID-QID PRN hemorrhoids 07/04/23 with perineal applicator #30 grams (Anusol-HC) Allergies Allergy/AdvReac Type Severity Reaction Status Date / Time erenumab-aooe AdvReac Severe Constipatio Verified 08/01/23 09:21 [From Aimovig Autoinjector] n galcanezumab-gnlm AdvReac Intermediate Injection Verified 08/01/23 09:21 [From Emgality Pen] site rash sumatriptan AdvReac Mild Jaw Pain Verified 08/01/23 09:21 propranolol AdvReac Bradycardia Verified 08/01/23 09:21 Review of Systems Review of Systems Constitutional : No Weight loss, No Fever, No Chills, No Fatigue, No Malaise ENT/Mouth : No sore throat, No Rhinorrhea Eyes: No Eye Pain, No Swelling, No Redness Cardiovascular : No Chest Pain, No SOB, No Dyspnea on Exertion, No Orthopnea, No Edema, No Palpitations Respiratory : No Cough, No Sputum, No Wheezing Gastrointestinal : No Nausea, No Vomiting, No Diarrhea, No Constipation, No abdominal Pain, No Hematochezia, No Melena Genitourinary : No Dysuria, No Urinary Frequency, No Hematuria, Musculoskeletal : No joint pain, No Myalgias, No Joint Swelling Skin : No Skin Lesions, No rash Neuro : No Weakness, No Numbness, No Dizziness, No Headache Psych : No Anxiety/Panic, No Depression All other systems reviewed and are negative Yes all other systems are reviewed and are negative [facility] Past Medical History Attestation statement: The following information was validated with the patient. Source: old records reviewed and nursing notes reviewed Medical History Bleeding hemorrhoids Thrombosed external hemorrhoid COVID Asthma Migraines Surgical History [place] teeth extracted History of section Family History Family History Father Asthma Diabetes HTN (hypertension) High cholesterol Acute arthritis Mother Migraine HTN (hypertension) Acute arthritis Maternal Grandfather HTN (hypertension) High cholesterol CHF (congestive heart failure) Stroke Social History Social History Household Members Other:: DAUGHTER Alcohol intake: current Alcohol intake frequency: holidays/special occasions only Patient Tobacco Use Status: Never used Tobacco Smoked in Last 30 Days: No Use of substances other than those prescribed or required for medical reasons: No Advance Directives: No Advance Directives Information Provided: Yes Patient : No 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 Oriented X3.? No acute distress.? Head: Normocephalic, atraumatic, no step-offs or deformities Eyes: Pupils equal, round and reactive to light.? Neck: Normal inspection.? Neck supple.? CVS: Normal heart rate and rhythm.? Pulses normal.? Respiratory: No respiratory distress.? Breath sounds normal.? Abdomen: Soft and nontender.?Normo active bowel sounds Skin: Skin warm and dry.? Normal skin color.? Normal skin turgor.? Extremities: No lower extremity edema.? No calf ttp. 5/5 strength to bilateral upper and lower extremities Back: No midline tenderness, no C-spine tenderness, full range of motion, no CVA tenderness bilaterally Neuro: Oriented X 3.? No motor deficit.? No sensory deficit. CN 2-12 intact Course Course Course Narrative: This is a rapid medical exam. Deferred additional HPI, ROS, PE to primary provider. 28 yo female here with complaints of multiple episodes of vomiting since last evening. Went out with her friends last night and had several alcoholic beverages. No abdominal pain, diarrhea, fevers, chills. LMP 07/16, had IUD placed 2 weeks ago. No sick contact. Will obtain labs, UA, ur preg, viral testing Will give SL zofran VSS Reevaluation(s) Reevaluation #1: CBC with leukocytosis and left shift however I suspect this is from reactivity from nausea and vomiting unlikely infection. Chemistry unremarkable. Patient COVID positive likely contributing to patient's symptoms. Lipase pending. Will wait for urine and urine . Time: 16:56 Medical Decision Making Medical Decision Making [facility] Narrative: 1650 28 yo f presents w/ n/v s/p heavy drinking last night PE benign likely viral illness vs alcohol intoxication/overdose vs pancreatitis. No abdominal pain however low suspicion for acute abdomen mild obstruction. Will rule out metabolic derangements, he UTI in Plan labs, viral testing Will gives fluids and Zofran Differential Diagnosis Differential Diagnoses: The differential diagnosis associated with the presentation includes likely viral illness vs alcohol intoxication/overdose vs pancreatitis. No abdominal pain however low suspicion for acute abdomen mild obstruction. Will rule out metabolic derangements, he UTI in Admission/Observation Consideration of admission/observation: Escalation of care including admission/observation considered Lab Data [facility] Lab Attestation statement: I reviewed the patient's lab results. 08/13/23 15:54 08/13/23 15:54 Labs: Lab Results 08/13/23 Range/Units 15:54 WBC 12.8 H (4.8-10.8) X10*3/uL RBC 4.55 (4.20-5.50) X10*6/uL Hgb 13.8 (12.0-16.0) g/dl Hct 40.9 (37.0-47.0) % MCV 89.9 (80.0-98.0) fL MCH 30.3 (27.0-33.0) pg MCHC 33.7 (31.0-35.0) g/dl RDW 12.6 (11.0-16.0) % Plt Count 251 (160-400) X10*3/uL MPV 11.3 (9.4-12.3) fL Immature Gran % (Auto) 0.3 (0.0-0.4) % Neut % (Auto) 90.9 H (45-73) % Lymph % (Auto) 6.2 L (20-40) % [place] % (Auto) 2.4 (2-11) % Eos % (Auto) 0.0 (0-4) % Baso % (Auto) 0.2 (0-2) % Lymph # (Auto) 0.8 L (1.2-4.9) X10*3/uL [place] # (Auto) 0.3 (0.1-1.2) X10*3/uL Eos # (Auto) 0.0 (0.0-0.4) X10*3/uL Baso # (Auto) 0.0 (0.0-0.2) X10*3/uL Abs Immat Gran (auto) 0.04 H (0.00-0.03) X10*3/uL Absolute Neuts (auto) 11.6 H (2.0-8.3) x10*3/uL Absolute Nucleated RBC 0.000 (0.0-0.012) X10*3/uL Nucleated RBC % (auto) 0.0 (0.0-0.2) /100WBC Smear Tech's Comments VERIFIED Sodium 142 (135-145) mmol/L Potassium 4.4 (3.3-5.1) mmol/L Chloride 108 (96-108) mmol/L Carbon Dioxide 23 (22-29) mmol/L Anion Gap 15 (12-20) BUN 11 (9-16) mg/dL Creatinine 0.72 (0.5-1.4) mg/dL Estim Creat Clear Calc 95.0 Estimated GFR > 60 Random Glucose 85 (60-115) mg/dL Calcium 9.9 (8.4-10.2) mg/dL Total Bilirubin 0.6 (0.0-1.0) mg/dL Direct Bilirubin 0.3 (0.0-0.5) mg/dL AST 21 (5-31) U/L ALT 16 (0-31) U/L Alkaline Phosphatase 68 (39-117) U/L Total Protein 8.0 (6.5-8.0) g/dL Albumin 4.7 (3.5-5.0) g/dL Influenza Type A (PCR) NEGATIVE (Negative) Influenza Type B (PCR) NEGATIVE (Negative) RSV RNA Qual (PCR) NEGATIVE (Negative) SARS-CoV-2 RNA (RT-PCR) POSITIVE A (Negative) Medications Administered Generic Name Dose Route Start Last Admin Trade Name Freq PRN Reason Stop Dose Admin Sodium Chloride 1,000 mls @ 999 mls/hr 08/13/23 17:00 08/13/23 17:00 Ns IV 08/13/23 18:00 999 mls/hr .Q1H1M JORDIN Administration Discontinued Medications Generic Name Dose Route Start Last Admin Trade Name Freq PRN Reason Stop Dose Admin Ondansetron HCl 4 mg 08/13/23 15:44 08/13/23 15:53 Ondansetron Odt 4 Mg Tab.Rapdis TRANSLINGU 08/13/23 15:45 4 mg ONCE ONE Administration Ondansetron HCl 4 mg 08/13/23 16:53 08/13/23 17:05 Ondansetron Hcl 4 Mg/2 Ml Vial IVPUSH 08/13/23 16:54 4 mg ONCE ONE Administration Discharge Plan Discharge Clinical Impression: COVID-19 Patient Disposition: Home, Self-Care Instructions: COVID-19 (Coronavirus Disease 2019) (ED) Additional Instructions: Take your medications as prescribed. If you were prescribed antibiotics today, it is important that you take your medication to their entirety, do not skip any doses, do not finish them early. Today you tested positive for COVID-19. Take Ibuprofen or Tylenol as needed for fevers or body aches. Quarantine for 5 days and ensure you wear a mask. After 5 days you should wear a mask for 5 days after that. Practice social distancing and good hand hygiene. Drink plenty of fluids. Follow-up with your primary care provider this week. Return to the emergency department with new or worsening symptoms. In case of emergency call 911 You can purchase a pulse oximeter from your local pharmacy or grocery store, and monitor your oxygen saturation if it goes below 94% you should return to the emergency department for further evaluation. Prescriptions: No Action rizatriptan 10 mg tablet,disintegrating 10 mg PO Q2H PRN (Reason: migraine headache) 30 Days Qty: 12 6RF Rx Instructions: max 2 tabs per day/4 tabs per week hydrocortisone [Anusol-HC] 2.5 % cream with perineal applicator 1 appl VA BID-QID PRN (Reason: hemorrhoids) Qty: 30 0RF albuterol sulfate 90 mcg/actuation HFA aerosol inhaler 1 inh inhalation QID PRN (Reason: shortness of breath or wheezing) Qty: 8.5 0RF cumhfbdydj-yqjpgtwjcupmq-lwvk [Fioricet] 50-300-40 mg capsule 1 cap PO Q6H PRN (Reason: pain) 30 Days Qty: 20 3RF Rx Instructions: max 2 caps per day/4 caps per week ondansetron HCl 4 mg tablet 4 mg PO Q6H PRN (Reason: nausea and vomiting) 30 Days Qty: 30 3RF Referrals: Physician,Unknown J [Primary Care Provider] - 2 days Stand Alone Forms: Work/School Release
[2023-08-13] MEDS: Ondansetron ODT 4 MG TAB.RAPDIS TRANSLINGU (15:53)
[2023-08-13 16:08] LABS: Basophils Percent Auto 0.2 % (0-2); Hematocrit 40.9 % (37.0-47.0); Hemoglobin 13.8 g/dl (12.0-16.0); Imm Gran Abs Auto 0.04 X10*3/uL (0.00-0.03); Imm Gran Pct Auto 0.3 % (0.0-0.4); Lymphocytes Absolute Auto 0.8 X10*3/uL (1.2-4.9); Lymphocytes Percent Auto 6.2 % (20-40); MANUAL DIFF FLAG SCAN; Mean Corpuscular HGB Conc 33.7 g/dl (31.0-35.0); Mean Corpuscular Hemoglobin 30.3 pg (27.0-33.0); Mean Corpuscular Volume 89.9 fL (80.0-98.0); Mean Platelet Volume 11.3 fL (9.4-12.3); Monocytes Absolute Auto 0.3 X10*3/uL (0.1-1.2); Monocytes Percent Auto 2.4 % (2-11); Neutrophils Absolute Auto 11.6 x10*3/uL (2.0-8.3); Neutrophils Percent Auto 90.9 % (45-73); Platelet Count 251 X10*3/uL (160-400); Red Blood Count 4.55 X10*6/uL (4.20-5.50); Red Cell Distribution Width 12.6 % (11.0-16.0); SCAN SMEAR FLAG 1; White Blood Count 12.8 X10*3/uL (4.8-10.8)
[2023-08-13 16:18] LABS: Alanine Aminotransferase 16 U/L (0-31); Albumin Level 4.7 g/dL (3.5-5.0); Alkaline Phosphatase 68 U/L (39-117); Anion Gap 15 (12-20); Aspartate Amino Transferase 21 U/L (5-31); Bilirubin Direct 0.3 mg/dL (0.0-0.5); Bilirubin Total 0.6 mg/dL (0.0-1.0); Blood Urea Nitrogen 11 mg/dL (9-16); Calcium 9.9 mg/dL (8.4-10.2); Carbon Dioxide 23 mmol/L (22-29); Chloride 108 mmol/L (96-108); Estimated Glomerular Filt Rate > 60; Glucose Random 85 mg/dL (60-115); Potassium 4.4 mmol/L (3.3-5.1); Sodium 142 mmol/L (135-145)
[2023-08-13 16:39] LABS: Influenza A PCR NEGATIVE (Negative); Influenza B PCR NEGATIVE (Negative); Resp Syncy Virus RNA Qual PCR NEGATIVE (Negative); SARS COV2 PCR INHOUSE POSITIVE (Negative)
[2023-08-13 16:46] LABS: SLIDE REVIEW VERIFIED
[2023-08-13 17:00] VITALS: BP 107/59; PULSE 76; RESP 16; TEMP 37.3; O2SAT 100
[2023-08-13] MEDS: 0.9 % Sodium Chloride 1,000 ML 999 ML IV (17:00)
--- NOTE | 2023-08-13 17:00 | PC.NURSE ---
a&ox3, vss and up to date at this time. pt comes in d/t new onset n/v since this am. pt verbalizing lower abdominal discomfort d/t placement of new IUD. pt verbalizes abdominal pain is unrelated to vomiting episodes. 20gIV placed in the left forearm - medications/IV fluids administered per provider order. will obtain urine sample when able. no sob/wob noted. respirations even and unlabored. family bedside. call cooper placed within reach.
[2023-08-13] MEDS: ondansetron HCL 4 MG/2 ML VIAL IVPUSH (17:05)
[2023-08-13 17:13] LABS: Lipase 12 U/L (8-78)
--- NOTE | 2023-08-13 17:40 | PC.NURSE ---
urine obtained/sent to lab. pt provided w/ d/c paperwork. IV removed.
--- NOTE | 2023-08-13 17:46 | PC.NURSE ---
pt received d/c paperwork and starting c/o new onset chest tightness. non-radiating. ekg ordered/being performed by tech.
[2023-08-13 17:48] LABS: Appearance Urine Cloudy; Color Urine Yellow; Glucose Urine UA Negative (Negative); Leukocyte Esterase Urine Negative (Negative); Nitrite Urine Negative (Negative); Specific Gravity - Urine 1.025 (1.005-1.025); Urine Blood Negative (Negative); Urine Ketones >=160 mg/dL (Negative); Urine Protein Negative (Neg-Trace)
[2023-08-13 17:50] LABS: UPreg QC Valid YES; Urine Pregnancy NEGATIVE (NEGATIVE)
[2023-08-13 18:12] LABS: Troponin-I High Sensitivity < 2.7 ng/L (<3.5-17.0)
--- NOTE | 2023-08-13 19:18 | PC.NURSE ---
repeat troponin obtained/sent to lab.
[2023-08-13 19:54] LABS: Troponin-I High Sensitivity < 2.7 ng/L (<3.5-17.0)
== END 2023-08-13 20:27 | disposition home or self-care (01) ==
PROVIDERS: Nurse Practitioner Family; Physician Assistant; Emergency Provider Internal Medicine
DX: U07.1 COVID-19 (principal); R11.2 Nausea with vomiting, unspecified
CPT/HCPCS: 0241U; 36415; 80048; 80076; 81003; 81025; 83690; 84484; 85025; 93005; 96361; 96374; 99285; J2405

== ENCOUNTER → 2023-08-13 17:58 | Outpatient (BNV) | payer OTHER, SELFPAY | PROVIDERS: Emergency Provider Internal Medicine; Visit Provider Internal Medicine | DX: R07.9 Chest pain, unspecified (principal) | CPT/HCPCS: 93010 ==

== ENCOUNTER 2023-11-28 12:54 | Outpatient (AMB) | payer OTHER, SELFPAY ==
[2023-11-28 13:06] VITALS: BP 92/68; PULSE 70; RESP 16; O2SAT 98; BMI 26.4
--- NOTE | 2023-11-28 13:06 | MHC.OFFVIS ---
Intake Vital Signs 11/28/23 13:06 Height 5 ft Weight 135 lb BMI 26.4 BP 92/68 Blood Pressure Location Rt brachial Position Sitting Respiration 16 Pulse 70 Pulse Source Pulse Oximeter Pulse Oximetry (%) 98 Oxygen Delivery Method Room Air Intake Visit Reasons: Follow up Migraines - LVM w/address Intake Note: Pt presents for follow up for Migraines. Machine I Engraver Required: No Allergies erenumab-aooe [From Aimovig Autoinjector] Adverse Reaction (Severe, Verified 11/28/23 13:06) Constipation galcanezumab-gnlm [From Emgality Pen] Adverse Reaction (Intermediate, Verified 11/28/23 13:06) Injection site rash sumatriptan Adverse Reaction (Mild, Verified 11/28/23 13:06) Jaw Pain propranolol Adverse Reaction (Verified 11/28/23 13:06) Bradycardia Medication List - Last Reconciled 11/28/23 by GALO Abdullahi albuterol sulfate 90 mcg/actuation 1 inh inhalation QID PRN mgfqnvmhjk-ngwlnzmejdgtm-vmuz 50-300-40 mg (Fioricet) 1 cap PO Q6H PRN 30 days hydrocortisone 2.5% (Anusol-HC) 1 appl [place] BID-QID PRN hydroxyzine HCl 10 mg PO TID PRN ondansetron 4 mg PO Q6H PRN ondansetron HCl 4 mg PO Q6H PRN 30 days rizatriptan 10 mg PO Q2H PRN 30 days HPI HPI Comments History of Present Illness Details 28-yr-old female presents for f/u visit. Pt reports she has had several recent URIs, and since has been feeling more fatigued. Pt has had her IUD changed- which she thinks helps some, however she still does have her menses and her migraines are worse during her menses. She is still having 2-3 migraine days per week. Rizatriptan can help but not always effectively- and can cause sleepiness. She was tried on Sertraline and prn Hydralazine for episodic anxiety. She did not tolerate sertraline and had a migraine following her 1st dose. Unfortunately her PCP's nurse advised her she could not take her triptan w/in 24 hrs of the sertraline- and she had an extended migraine attack. [facility] Medical History Bleeding hemorrhoids Thrombosed external hemorrhoid COVID Asthma Migraines Surgical History [place] teeth extracted History of section Family History Father Asthma Diabetes HTN (hypertension) High cholesterol Acute arthritis Mother Migraine HTN (hypertension) Acute arthritis Maternal Grandfather HTN (hypertension) High cholesterol CHF (congestive heart failure) Stroke Social History Household Members Other:: DAUGHTER Alcohol intake: current Alcohol intake frequency: holidays/special occasions only Patient Tobacco Use Status: Never used Tobacco 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: Last Vital Signs Pulse 70 11/28/23 13:06 Resp 16 11/28/23 13:06 BP 92/68 11/28/23 13:06 Pulse Ox 98 11/28/23 13:06 Oxygen Delivery Method Room Air 11/28/23 13:06 BMI result Body Mass Index 26.4 Const General: cooperative and no acute distress Orientation/consciousness: patient oriented x3 Resp Effort & Inspection: normal respiratory effort and able to speak in complete sentences Neuro General: patient oriented x3 Cranial nerves: Yes CN's II-XII intact bilaterally Cognition (Neuro): normal cognition Psych Appearance: grossly normal Mental Status: mental status grossly normal Speech and movement: Normal speech and movement present Affect: normal affect Attitude: cooperative Assessment & Plan Assessment & Plan (1) Chronic migraine with aura: Code(s): G43.109 - Migraine with aura, not intractable, without status migrainosus (2) Anxiety: Code(s): F41.9 - Anxiety disorder, unspecified (3) Depression: Code(s): F32.A - Depression, unspecified (4) Fatigue: Code(s): R53.83 - Other fatigue Plan For fatigue and anxiety: Check labs. For acute migraine tx: Continue prn Rizatriptan- note causes some drowsiness. Discussed that if pt does retry a SSRI, she may take triptan while taking a SSRI as risk for serotonin syndrome is low as SSRI and triptan target different serotonin receptor sites. Trial Ubrelvy 100mg prn (max 2 tabs per day). Do not take w/ Fioricet. Fioricet prn- sparingly Zofran 4mg prn N/V. Previous tx trials- Nurtec helped some, Sumatriptan- jaw pain. Trudhessa sample- effective but does cause some nasal irritation. ? For menstrual Migraine: May take Ubrlevy and rizatriptan prn. ? For migraine prevention tx: Continue trigger avoidance as able. Hold Riboflavin and Magnesium. Future considerations- Botox, Vyepti 100mg IV q 3 months, Nerivio neuromodulation device. Previous tx trials: Amitriptyline- constipation, Propranolol- bradycardia, Topiramate- did not tolerate, Aimovig- severe constipation, Emgality and Ajovy- injection site rash. ? f/u in 6 months or sooner prn. Orders: Orders Vitamin D 25-OH (D2 and D3) Today F32.A - Depression, unspecified, F41.9 - Anxiety disorder, unspecified, G43.109 - Migraine with aura, not intractable, without status migrainosus, R53.83 - Other fatigue TSH reflex Free T4 Today F32.A - Depression, unspecified, F41.9 - Anxiety disorder, unspecified, G43.109 - Migraine with aura, not intractable, without status migrainosus, R53.83 - Other fatigue Complete Blood Count Auto Diff Today F32.A - Depression, unspecified, F41.9 - Anxiety disorder, unspecified, G43.109 - Migraine with aura, not intractable, without status migrainosus, R53.83 - Other fatigue Comprehensive Met. Panel Today F32.A - Depression, unspecified, F41.9 - Anxiety disorder, unspecified, G43.109 - Migraine with aura, not intractable, without status migrainosus, R53.83 - Other fatigue Medications: New ubrogepant (Ubrelvy) take at onset of migraine, may repeat in 2hrs (may take w/ Ibuprofen) 50 - 100 mg (0.5 - 1 x 100 mg) PO ONCE 30 days PRN 16 tabs 3RF migraine headache Coding Level of Care Code Est Pt Level 4 (28878) Diagnoses Chronic migraine with aura G43.109 Anxiety F41.9 Depression F32.A Fatigue R53.83
== END 2023-11-28 13:56 | disposition home or self-care (01) ==
PROVIDERS: PCP Internal Medicine; Visit Provider Nurse Practitioner Family
DX: G43.109 Migraine with aura, not intractable, without status migrainosus (principal); F41.9 Anxiety disorder, unspecified; F32.A Depression, unspecified; R53.83 Other fatigue
CPT/HCPCS: 99214

== ENCOUNTER → 2023-11-28 12:54 | Outpatient (BNVA) | payer OTHER, SELFPAY | PROVIDERS: PCP Internal Medicine; Visit Provider Nurse Practitioner Family ==

== ENCOUNTER 2023-12-01 09:03 | Outpatient (REF) | payer OTHER, SELFPAY ==
[2023-12-01 09:25] LABS: IDNOW Serial# 08D9AD1C; Strep A Nucleic Acid Positive (Negative)
== END 2023-12-01 09:04 | disposition home or self-care (01) ==
LOC: HO.LAB 09:03
PROVIDERS: Visit Provider Internal Medicine Cardiovascular Disease
DX: Z13.9 Encounter for screening, unspecified (principal)
CPT/HCPCS: 87651

== ENCOUNTER 2023-12-01 09:12 | Outpatient (REF) | payer OTHER, SELFPAY ==
[2023-12-01 09:25] LABS: MANUAL DIFF FLAG NO
[2023-12-01 09:40] LABS: Basophils Percent Auto 0.3 % (0-2); Eosinophils Absolute Auto 0.1 X10*3/uL (0.0-0.4); Eosinophils Percent Auto 1.3 % (0-4); Hematocrit 40.5 % (37.0-47.0); Hemoglobin 13.7 g/dl (12.0-16.0); Imm Gran Abs Auto 0.03 X10*3/uL (0.00-0.03); Imm Gran Pct Auto 0.3 % (0.0-0.4); Lymphocytes Absolute Auto 1.4 X10*3/uL (1.2-4.9); Lymphocytes Percent Auto 14.4 % (20-40); Mean Corpuscular HGB Conc 33.8 g/dl (31.0-35.0); Mean Corpuscular Hemoglobin 31.4 pg (27.0-33.0); Mean Corpuscular Volume 92.7 fL (80.0-98.0); Mean Platelet Volume 11.4 fL (9.4-12.3); Monocytes Absolute Auto 0.6 X10*3/uL (0.1-1.2); Neutrophils Absolute Auto 7.8 x10*3/uL (2.0-8.3); Neutrophils Percent Auto 77.7 % (45-73); Platelet Count 243 X10*3/uL (160-400); Red Blood Count 4.37 X10*6/uL (4.20-5.50); Red Cell Distribution Width 12.5 % (11.0-16.0)
[2023-12-01 10:17] LABS: Alanine Aminotransferase 17 U/L (0-31); Albumin Level 4.1 g/dL (3.5-5.0); Alkaline Phosphatase 75 U/L (39-117); Anion Gap 12 (12-20); Aspartate Amino Transferase 17 U/L (5-31); Bilirubin Total 0.4 mg/dL (0.0-1.0); Blood Urea Nitrogen 12 mg/dL (9-16); Calcium 9.6 mg/dL (8.4-10.2); Carbon Dioxide 26 mmol/L (22-29); Chloride 107 mmol/L (96-108); Estimated Glomerular Filt Rate > 60; Glucose Random 90 mg/dL (60-115); Potassium 4.7 mmol/L (3.3-5.1); Sodium 140 mmol/L (135-145); Total Protein 7.4 g/dL (6.5-8.0)
[2023-12-01 10:35] LABS: TSH reflex Free T4 1.17 uIU/mL (0.32-4.0)
[2023-12-05 16:14] LABS: Vitamin D 25-OH, D2 <4 ng/mL; Vitamin D 25-OH, D3 21 ng/mL; Vitamin D 25-OH, Total 21 ng/mL (30-100)
== END 2023-12-01 09:13 | disposition home or self-care (01) ==
LOC: HO.LAB 09:12
PROVIDERS: PCP Internal Medicine; Visit Provider Nurse Practitioner Family
DX: F41.9 Anxiety disorder, unspecified (principal); G43.109 Migraine with aura, not intractable, without status migrainosus; F32.A Depression, unspecified; R53.83 Other fatigue
CPT/HCPCS: 36415; 80053; 82306; 84443; 85025

== ENCOUNTER 2023-12-13 08:06 | Outpatient (AMB) | payer OTHER, SELFPAY ==
[2023-12-13 08:08] VITALS: BP 110/70; PULSE 95; TEMP 37.7; O2SAT 96
--- NOTE | 2023-12-13 08:08 | MHC.OFFWIV ---
Intake Vital Signs 12/13/23 08:08 Height 5 ft BP 110/70 Blood Pressure Location Lt brachial Position Sitting Pulse 95 Pulse Source Pulse Oximeter Temp 100 F Temp Source Oral Pulse Oximetry (%) 96 Oxygen Delivery Method Room Air Intake Visit Reasons: EP body aches fever headache child w/ flu Intake Note: pt is here for c.o body aches, fever, headache. patient states her child is sick with the flu Patient Tobacco Use Status: Never used Tobacco Allergies erenumab-aooe [From Aimovig Autoinjector] Adverse Reaction (Severe, Verified 12/13/23 08:20) Constipation galcanezumab-gnlm [From Emgality Pen] Adverse Reaction (Intermediate, Verified 12/13/23 08:20) Injection site rash sumatriptan Adverse Reaction (Mild, Verified 12/13/23 08:20) Jaw Pain propranolol Adverse Reaction (Verified 12/13/23 08:20) Bradycardia Medication List - Last Reconciled 12/13/23 by Fernando Mejía MD albuterol sulfate 90 mcg/actuation 1 inh inhalation QID PRN richanrxsz-fyudavpxzybhl-cblv 50-300-40 mg (Fioricet) 1 cap PO Q6H PRN 30 days cholecalciferol (vitamin D3) 1,250 mcg PO QWEEK 12 weeks hydrocortisone 2.5% (Anusol-HC) 1 appl [place] BID-QID PRN hydroxyzine HCl 10 mg PO TID PRN ondansetron HCl 4 mg PO Q6H PRN 30 days rizatriptan 10 mg PO Q2H PRN 30 days Do you need a note to return to daycare/school/sports/work: Yes HPI EP body aches fever headache child w/ flu HPI Details Patient presents for a sick visit. Reporting symptoms of sinus congestion, sore throat and difficulty swallowing. Low-grade fever. No family member is sick. No recent travel. Patient reports symptoms of malaise and fatigue. Patient's daughter tested positive for the flu 2 days ago. She is 8 years old. [facility] Medical History Bleeding hemorrhoids Thrombosed external hemorrhoid COVID Asthma Migraines Surgical History [place] teeth extracted History of section Family History Father Asthma Diabetes HTN (hypertension) High cholesterol Acute arthritis Mother Migraine HTN (hypertension) Acute arthritis Maternal Grandfather HTN (hypertension) High cholesterol CHF (congestive heart failure) Stroke Social History Household Members Other:: DAUGHTER Alcohol intake: current Alcohol intake frequency: holidays/special occasions only Patient Tobacco Use Status: Never used Tobacco 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: Last Vital Signs Temp 100 F 12/13/23 08:08 Pulse 95 12/13/23 08:08 BP 110/70 12/13/23 08:08 Pulse Ox 96 12/13/23 08:08 Oxygen Delivery Method Room Air 12/13/23 08:08 Const General: cooperative and healthy appearing Nutritional Appearance: well nourished Orientation/consciousness: patient oriented x3 Limitations: no limitations HEENT Head: Yes normal to inspection Eyes General: appearance normal, both eyes and all related structures Neck Neck: Yes normal visual inspection Chest Chest palpation & inspection: normal palpation of entire chest wall Resp Effort & Inspection: normal respiratory effort Neuro General: patient oriented x3 Assessment & Plan Assessment & Plan (1) Upper respiratory tract infection: Code(s): J06.9 - Acute upper respiratory infection, unspecified Plan: . Increase fluid intake. Tylenol for aches and pains. If symptoms worsen, follow-up here for a recheck. Antivirals called in. Will call with results of flu swab Orders: Orders SARS-CoV2/FLU/RSV Today R43.9 - Unspecified disturbances of smell and taste Coding Level of Care Code Est Pt Level 3 (00806) Diagnoses Upper respiratory tract infection J06.9
== END 2023-12-13 08:53 | disposition home or self-care (01) ==
PROVIDERS: PCP Internal Medicine; Visit Provider Internal Medicine
DX: J06.9 Acute upper respiratory infection, unspecified (principal)
CPT/HCPCS: 99213

== ENCOUNTER 2023-12-13 10:27 | Outpatient (REF) | payer OTHER, SELFPAY ==
[2023-12-13 11:25] LABS: Influenza A PCR NEGATIVE (Negative); Influenza B PCR POSITIVE (Negative); Resp Syncy Virus RNA Qual PCR NEGATIVE (Negative); SARS COV2 PCR INHOUSE NEGATIVE (Negative)
== END 2023-12-13 10:28 | disposition home or self-care (01) ==
LOC: HO.LNP 10:27
PROVIDERS: Visit Provider Internal Medicine
DX: R43.9 Unspecified disturbances of smell and taste (principal)
CPT/HCPCS: 0241U

== ENCOUNTER 2023-12-17 17:18 | Emergency (ER) | payer OTHER, SELFPAY | END 2023-12-17 18:54 | disposition left against medical advice (07) | PROVIDERS: Emergency Provider Emergency Medicine | DX: Z53.21 Procedure and treatment not carried out due to patient leaving prior to being seen by health care provider (principal); R53.1 Weakness; R07.89 Other chest pain; R05.9 Cough, unspecified ==

== ENCOUNTER 2024-05-30 08:02 | Outpatient (AMB) | payer OTHER, SELFPAY ==
--- NOTE | 2024-05-30 08:03 | MHC.OFFVIS ---
Vital Signs 05/30/24 08:04 Height 5 ft Weight 148 lb BMI 28.9 BP 110/72 Blood Pressure Location Rt brachial Position Sitting Intake Visit Reasons: Follow up Migraines Intake Note: patient presents for follow up. patient gets three migraines a week treatment works but makes her super sleepy. Allergies erenumab-aooe [From Aimovig Autoinjector] Adverse Reaction (Severe, Verified 05/30/24 08:07) Constipation galcanezumab-gnlm [From Emgality Pen] Adverse Reaction (Intermediate, Verified 05/30/24 08:07) Injection site rash sumatriptan Adverse Reaction (Mild, Verified 05/30/24 08:07) Jaw Pain propranolol Adverse Reaction (Verified 05/30/24 08:07) Bradycardia Medication List - Last Reconciled 05/30/24 by GALO Abdullahi albuterol sulfate 90 mcg/actuation 1 inh inhalation QID PRN ichgtrvtfs-qptjsoitgkxsv-vgzg 50-300-40 mg (Fioricet) 1 cap PO Q6H PRN 30 days cholecalciferol (vitamin D3) 1,250 mcg PO QWEEK 12 weeks hydrocortisone 2.5% (Anusol-HC) 1 appl VA BID-QID PRN hydroxyzine HCl 10 mg PO TID PRN ondansetron HCl 4 mg PO Q6H PRN 30 days oseltamivir (Tamiflu) 75 mg PO BID 5 days rizatriptan 10 mg PO Q2H PRN 30 days HPI Comments Details: 28-yr-old female presents for f/u visit. Pt denies any significant interval medical changes. Pt notes increased stress and poor sleep recently r/t her custody issues w/ her dtr's father., which can trigger headaches. Pt is having 2-3 migraines days per week. Rizatriptan can help but not always effectively- and can cause sleepiness so cannot always take when at work. Using Fioricet prn. Ubrelvy was not effective- but believes she likely took Fiorcet in close proximity to trying the Ubrelvy. She is compliant w/ Vit D supplement. She does still struggle w/ constipation. 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 [employer] Medical History Bleeding hemorrhoids Thrombosed external hemorrhoid COVID Asthma Migraines Surgical History [place] teeth extracted History of section Family History Father Asthma Diabetes HTN (hypertension) High cholesterol Acute arthritis Mother Migraine HTN (hypertension) Acute arthritis Maternal Grandfather HTN (hypertension) High cholesterol CHF (congestive heart failure) Stroke Social History Household Members Other:: DAUGHTER Alcohol intake: current Alcohol intake frequency: holidays/special occasions only Patient Tobacco Use Status: Never used Tobacco Current occupational status: employed Current occupation: [employer] Physical Exam Vital Signs: Last Vital Signs BP 110/72 05/30/24 08:04 BMI result Body Mass Index 28.9 Const General: cooperative and no acute distress Orientation/consciousness: patient oriented x3 Resp Effort & Inspection: normal respiratory effort and able to speak in complete sentences Neuro General: patient oriented x3 Cranial nerves: Yes CN's II-XII intact bilaterally Cognition (Neuro): normal cognition Psych Appearance: grossly normal Mental Status: mental status grossly normal Speech and movement: Normal speech and movement present Affect: normal affect Attitude: cooperative Assessment & Plan Assessment & Plan (1) Migraines: Code(s): G43.909 - Migraine, unspecified, not intractable, without status migrainosus Category: Medical (2) Menstrual migraine: Code(s): G43.829 - Menstrual migraine, not intractable, without status migrainosus Category: Medical (3) Vitamin D deficiency: Code(s): E55.9 - Vitamin D deficiency, unspecified Category: Medical Plan For fatigue and anxiety: Continue Vit D supplement. Recheck Vit D level. Pt would benefit from re-trying psychotherapy- info given on [employer] Increase physical activity- will resume using gym at work ? For acute migraine tx: Continue prn Rizatriptan- note causes some drowsiness. Thus, trial Eletriptan 20-40mg prn in hopes this is better tolerated. Hold Ubrelvy 100mg prn (max 2 tabs per day)- ineffective but question if trial was seperated enough from Fioricet use. Fioricet prn- sparingly Zofran 4mg prn N/V. Previous tx trials- Nurtec helped some, Sumatriptan- jaw pain. Trudhesa sample- effective but does cause some nasal irritation. ? For menstrual Migraine: May rizatriptan prn. Future considerations- Frovatriptan. ? For migraine prevention tx: Continue trigger avoidance as able. Trial Candesartan 4mg qd- monitor for lightheadedness. Future considerations- Botox, Vyepti 100mg IV q 3 months, Nerivio neuromodulation device. Previous tx trials: Amitriptyline- constipation, Propranolol- bradycardia, Topiramate- did not tolerate, Aimovig- severe constipation, Emgality and Ajovy- injection site rash. ? f/u in 6 months or sooner prn. Medications: New candesartan 4 mg PO DAILY 30 tabs 3RF 30 days G43.909 - Migraine, unspecified, not intractable, without status migrainosus eletriptan take 1 tab at onset of headache; if no relief, may repeat 1 tab after at least 2 hrs; max = 2 tabs/24 hrs PO 12 tabs 3RF 30 days Refilled ondansetron HCl 4 mg PO Q6H PRN 30 tabs 3RF nausea and vomiting 30 days Discontinued oseltamivir (Tamiflu) Discontinued Reason: Patient no longer taking 75 mg PO BID 5 days 10 caps 0RF Coding Level of Care Code Est Pt Level 4 (05785) Diagnoses Migraines G43.909 Menstrual migraine G43.829 Vitamin D deficiency E55.9
[2024-05-30 08:04] VITALS: BP 110/72; BMI 28.9
== END 2024-05-30 08:56 | disposition home or self-care (01) ==
PROVIDERS: PCP Internal Medicine; Visit Provider Nurse Practitioner Family
DX: G43.909 Migraine, unspecified, not intractable, without status migrainosus (principal); G43.829 Menstrual migraine, not intractable, without status migrainosus; E55.9 Vitamin D deficiency, unspecified
CPT/HCPCS: 99214

== ENCOUNTER → 2024-05-30 08:02 | Outpatient (BNVA) | payer OTHER, SELFPAY | PROVIDERS: PCP Internal Medicine; Visit Provider Nurse Practitioner Family | DX: F41.9 Anxiety disorder, unspecified (principal); G43.109 Migraine with aura, not intractable, without status migrainosus; F32.A Depression, unspecified; R53.83 Other fatigue ==

== ENCOUNTER 2024-05-30 08:58 | Outpatient (REF) | payer OTHER, SELFPAY ==
[2024-06-03 13:49] LABS: Vitamin D 25-OH, D2 <4 ng/mL; Vitamin D 25-OH, D3 57 ng/mL; Vitamin D 25-OH, Total 57 ng/mL (30-100)
== END 2024-05-30 08:59 | disposition home or self-care (01) ==
LOC: HO.HKASLDS 08:58
PROVIDERS: Visit Provider Nurse Practitioner Family
DX: E55.9 Vitamin D deficiency, unspecified (principal)
CPT/HCPCS: 36415; 82306

== ENCOUNTER 2024-09-21 10:33 | Outpatient (AMB) | payer OTHER, SELFPAY ==
--- NOTE | 2024-09-21 11:05 | AM.OFFWIN_ITS ---
Intake Vital Signs 09/21/24 11:08 Height 5 ft Weight 150 lb BMI 29.3 BP 112/66 Blood Pressure Location Rt brachial Position Sitting Respiration 12 Pulse 58 Pulse Source Pulse Oximeter Pulse Oximetry (%) 98 Oxygen Delivery Method Room Air Intake Visit Reasons: sore throat Intake Note: Patient complaining of sore throat since yesterday Patient Tobacco Use Status: Never used Tobacco Allergies erenumab-aooe [From Aimovig Autoinjector] Adverse Reaction (Severe, Verified 09/21/24 11:25) Constipation galcanezumab-gnlm [From Emgality Pen] Adverse Reaction (Intermediate, Verified 09/21/24 11:25) Injection site rash sumatriptan Adverse Reaction (Mild, Verified 09/21/24 11:25) Jaw Pain propranolol Adverse Reaction (Verified 09/21/24 11:25) Bradycardia Medication List - Last Reconciled 09/21/24 by Carolyn Redd, [employer] DEVELOPER [employer]CHITECT- albuterol sulfate 90 mcg/actuation 1 inh inhalation QID PRN sjfddzvkfi-xcynktunhqauv-gxak 50-300-40 mg (Fioricet) 1 cap PO Q6H PRN 30 days candesartan 4 mg PO DAILY 30 days cholecalciferol (vitamin D3) 1,250 mcg PO QWEEK 12 weeks eletriptan take 1 tab at onset of headache; if no relief, may repeat 1 tab after at least 2 hrs; max = 2 tabs/24 hrs PO 30 days hydrocortisone 2.5% (Anusol-HC) 1 appl OR BID-QID PRN ondansetron HCl 4 mg PO Q6H PRN 30 days rizatriptan 10 mg PO Q2H PRN 30 days Do you need a note to return to daycare/school/sports/work: Yes HPI HPI Comments History of Present Illness Details History of Present Illness The patient is a 29-year-old female presenting with a sore throat. She reports that her voice has been hoarse for the entire week and she began experiencing pain with swallowing two days ago. The patient denies having any headaches, fever, chills, ear pain, or cough. She is managing her symptoms with Advil, which offers slight relief of pain, particularly associated with postnasal drip and swallowing. There are no additional symptoms reported. She has a known history of migraines but has not experienced any during this episode. 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 Exam Awake alert NAD Sclera and conjunctiva clear bilat Nares patent, turbinates within normal limits, no sinus tenderness with palpation bilat TM intact and clear on L, mild clouding on R MMM, pharynx mild erythema no exudate, uvula midline, no ac adenopathy RRR LS CTAB Results - Strep Test: Negative Plan - The patient is advised to continue wit h general supportive care including Advil for pain relief and increased fluid intake, as her symptoms are consistent with viral pharyngitis. - If symptoms persist beyond 7 to 10 day s or if the patient experiences incr eased pain, high fever, or severe difficulty swallowing, she is advised to seek further medical evaluation. Patient was informed and verbally consented to the use of an ambient scribe for clinic note documentation during this visit. Discussion Notes I discussed with the patient that her symptoms are likely due to viral pharyngitis. The strep test was negative, and the throat examination showed only mild redness. I explained that this condition is common with various viral infections circulating, such as COVID, flu, and RSV. We reviewed supportive care measures, including the use of Advil and maintaining hydration. I advised her that should her symptoms worsen or not improve within a week to ten days, she should return for reassessment. The patient acknowledged understanding of the evaluation and the recommendations. Patient Instructions - Continue taking Advil to manage pain. - Drink plenty of fluids to stay hydrate d. - Monitor symptoms, and if severe throat pain, high fever, or severe difficulty swallowing occurs, seek medical attention. - Return if symptoms do not improve in 7 to 10 days. Total time spent caring for the patient today was 30 minutes. This includes time spent before the visit reviewing the chart, time spent during the visit, and time spent after the visit on documentation, reviewing laboratory results, diagnostic imaging, medications, performing a medically necessary evaluation, counseling on diagnoses, care coordination, ordering appropriate tests, ordering appropriate medications, review of tests performed by other providers, reporting test results with the patient, communication with other healthcare providers. [facility] Medical History Bleeding hemorrhoids Thrombosed external hemorrhoid COVID Asthma Migraines Surgical History [place] teeth extracted History of section Family History Father Asthma Diabetes HTN (hypertension) High cholesterol Acute arthritis Mother Migraine HTN (hypertension) Acute arthritis Maternal Grandfather HTN (hypertension) High cholesterol CHF (congestive heart failure) Stroke Social History Household Members Other:: DAUGHTER Alcohol intake: current Alcohol intake frequency: holidays/special occasions only Patient Tobacco Use Status: Never used Tobacco Current occupational status: employed Current occupation: [employer] Physical Exam Vital Signs: Last Vital Signs Pulse 58 09/21/24 11:08 Resp 12 09/21/24 11:08 BP 112/66 09/21/24 11:08 Pulse Ox 98 09/21/24 11:08 Oxygen Delivery Method Room Air 09/21/24 11:08 BMI result Body Mass Index 29.3 Results AMB Rapid Strep AMB Rapid Strep Negative Last Edit by Ellen France MA on 09/21/24 11:50 Results Reviewed Results Reviewed: Laboratory Last Values Strep Scn Rapid Clinic Negative 09/21/24 11:23 Assessment & Plan Assessment & Plan (1) Viral pharyngitis: Code(s): J02.9 - Acute pharyngitis, unspecified Plan . Orders: Orders AMB Rapid Strep Screen Today Z13.9 - Encounter for screening, unspecified Coding Level of Care Code Est Pt Level 4 (44079) Diagnoses Viral pharyngitis J02.9
[2024-09-21 11:08] VITALS: BP 112/66; PULSE 58; RESP 12; O2SAT 98; BMI 29.3
== END 2024-09-21 11:54 | disposition home or self-care (01) ==
LOC: HO.HMCWIW 10:33
PROVIDERS: PCP Internal Medicine; Visit Provider Nurse Practitioner Family
DX: Z13.9 Encounter for screening, unspecified (principal); J02.9 Acute pharyngitis, unspecified

== ENCOUNTER → 2024-09-21 10:33 | Outpatient (BNVA) | payer OTHER, SELFPAY | PROVIDERS: PCP Internal Medicine; Visit Provider Nurse Practitioner Family | DX: J02.9 Acute pharyngitis, unspecified (principal) | CPT/HCPCS: 87880 ==

== ENCOUNTER 2024-12-10 07:57 | Outpatient (AMB) | payer OTHER, SELFPAY ==
--- NOTE | 2024-12-10 07:58 | MHC.OFFVIS ---
Vital Signs 12/10/24 08:03 Height 5 ft Weight 164 lb BMI 32.0 BP 100/62 Blood Pressure Location Rt brachial Position Sitting Pulse 56 Pulse Source Pulse Oximeter Pulse Oximetry (%) 99 Oxygen Delivery Method Room Air Intake Visit Reasons: Follow Up 6mo Bill Collector Required: No Accompanied by: Self / Same As Patient Allergies erenumab-aooe [From Aimovig Autoinjector] Adverse Reaction (Severe, Verified 12/10/24 08:05) Constipation galcanezumab-gnlm [From Emgality Pen] Adverse Reaction (Intermediate, Verified 12/10/24 08:05) Injection site rash sumatriptan Adverse Reaction (Mild, Verified 12/10/24 08:05) Jaw Pain propranolol Adverse Reaction (Verified 12/10/24 08:05) Bradycardia Medication List - Last Reconciled 12/10/24 by GALO Abdullahi albuterol sulfate 90 mcg/actuation 1 inh inhalation QID PRN fodbacamuf-qspibwwfrgmrt-pywd 50-300-40 mg (Fioricet) 1 cap PO Q6H PRN 30 days cholecalciferol (vitamin D3) 1,250 mcg PO QWEEK 12 weeks coenzyme Q10 (Co Q-10) 400 mg PO DAILY 30 days digital therapeutic,YINKA device ([employer] Digital Declan (migraine)) 45 minute neurostim qod for prevention and qd prn at onset of migraine. diphenhydramine HCl (Benadryl) 50 mg (2 x 25 mg) PO Q6H PRN 7 days eptinezumab-jjmr (Vyepti) 100 mg IV [id number] feverfew 1 cap PO DAILY 30 days magnesium oxide 400 mg PO BEDTIME 30 days metoclopramide HCl 10 mg (2 x 5 mg) PO Q4-6H PRN 7 days MDD 6 tabs omeprazole 20 mg PO DAILY 30 days ondansetron HCl 4 mg PO Q6H PRN 30 days prednisone 10 mg, 6 tabs X 3 days, 5 tabs X3 days, 4 tabs X 3 days, 3 tabs X3 days, 2 tabs X 3days, and 1 tab X 3 days orally daily; riboflavin (vitamin B2) 400 mg PO DAILY 30 days rizatriptan 10 mg PO Q2H PRN 30 days HPI Comments Details: 29-yr-old female presents for f/u visit for migraine. Pt denies any significant interval medical changes. Patient continues to have 3 migraine days per week. However, every couple of months, she also has a migraine attack that just does not respond to her usual as needed treatments, and persist for multiple days. The last was at the end of October, in which she reached out to the office, and was given prednisone burst, metoclopramide and Benadryl. The migraine attack broke after 3-4 days of prednsione taper- so she held the rest of the taper. She continues to have menstrual migraine. She is still prone to constipation. 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 Rizatriptan can help but not always effectively- and can cause sleepiness so cannot always take when at work. Using Fioricet sparingly prn. Ubrelvy was not effective- but believes she likely took Fiorcet in close proximity to trying the Ubrelvy. She has started seeing a therapist, which is helping her address issues related to the custody beyer she is having with her daughter's father. [facility] Medical History Bleeding hemorrhoids Thrombosed external hemorrhoid COVID Asthma Migraines Surgical History [place] teeth extracted History of section Family History Father Asthma Diabetes HTN (hypertension) High cholesterol Acute arthritis Mother Migraine HTN (hypertension) Acute arthritis Maternal Grandfather HTN (hypertension) High cholesterol CHF (congestive heart failure) Stroke Social History Household Members Other:: DAUGHTER Alcohol intake: current Alcohol intake frequency: holidays/special occasions only Patient Tobacco Use Status: Never used Tobacco 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: Last Vital Signs Pulse 56 12/10/24 08:03 BP 100/62 12/10/24 08:03 Pulse Ox 99 12/10/24 08:03 Oxygen Delivery Method Room Air 12/10/24 08:03 BMI result Body Mass Index 32.0 Const General: cooperative and no acute distress Orientation/consciousness: patient oriented x3 Resp Effort & Inspection: normal respiratory effort and able to speak in complete sentences Neuro General: patient oriented x3 Cranial nerves: Yes CN's II-XII intact bilaterally Cognition (Neuro): normal cognition Psych Appearance: grossly normal Mental Status: mental status grossly normal Speech and movement: Normal speech and movement present Affect: normal affect Attitude: cooperative Assessment & Plan Assessment & Plan (1) Migraines: Comment: fluctuates between episodic and chronic frequency. Code(s): G43.909 - Migraine, unspecified, not intractable, without status migrainosus Category: Medical Qualifiers: Migraine type: migraine (< 15 days per month) without aura Status migrainosus presence: without status migrainosus Intractability: not intractable Qualified Code(s): G43.009 - Migraine without aura, not intractable, without status migrainosus (2) Menstrual migraine: Code(s): G43.829 - Menstrual migraine, not intractable, without status migrainosus Category: Medical Qualifiers: Status migrainosus presence: with status migrainosus Intractability: not intractable Qualified Code(s): G43.821 - Menstrual migraine, not intractable, with status migrainosus (3) Vitamin D deficiency: Code(s): E55.9 - Vitamin D deficiency, unspecified Category: Medical Plan For fatigue and anxiety: Continue Vit D supplement. Recheck Vit D level. Continue psychotherapy. Continue physical activity. ? For acute migraine tx: Hold Eletriptan 20-40mg- unclear effect Hold Ubrelvy 100mg prn (max 2 tabs per day)- ineffective but question if trial was seperated enough from Fioricet use. Continue prn Rizatriptan- note causes some drowsiness. Fioricet prn- sparingly Zofran 4mg prn N/V. Metoclopramide 5-10mg every 4-6 hours as needed for migraine pain and/or Nausea- sparingly. Benadryl 25-50mg every 6 hours as needed. Trial Nerivio neuromodulation device- 45 min neurostimulation every day as needed. Previous tx trials- Nurtec helped some, Sumatriptan- jaw pain. Trudhesa sample- effective but does cause some nasal irritation. ? For menstrual Migraine: May rizatriptan prn. Trial eating 1 cup of edemame per day x's 7 days, starting at onset of menstrual migraine or menstrual cycle. Future considerations- Frovatriptan. ? For migraine prevention tx: Continue trigger avoidance as able. Stop Candesartan 4mg qd- not tolerated. Trial Feverfew Trial Co-Q 10 400mg daily in the morning. Resume Riboflavin 400mg daily in the morning. Resume Magnesium 400mg daily at bedtime. Start Vyepti 100mg IV every 90 days. Trial NerivJanus [employer]otherapeutics neuromodulation device- 45 min neurostimulation every other day. Previous tx trials: Amitriptyline- constipation, Propranolol- bradycardia, Topiramate- did not tolerate, Aimovig- severe constipation, Emgality and Ajovy- injection site rash. ? f/u in 6 months or sooner prn. Medications: New digital therapeutic,YINKA device ([employer] Medicine Declan (migraine)) 45 minute neurostim qod for prevention and qd prn at onset of migraine. 1 ea 11RF magnesium oxide may hold for loose stools 400 mg PO BEDTIME 30 tabs 6RF 30 days riboflavin (vitamin B2) 400 mg PO DAILY 30 tabs 6RF 30 days coenzyme Q10 (Co Q-10) 400 mg PO DAILY 30 caps 6RF 30 days feverfew 1 cap PO DAILY 30 caps 6RF 30 days eptinezumab-jjmr (Vyepti) administer over 30 mins 100 mg IV [id number] rizatriptan max 2 tabs per day or 4 tabs per week 5 - 10 mg (0.5 - 1 x 10 mg) PO Q2H PRN 12 tabs 6RF migraine headache 30 days Discontinued rizatriptan max 2 tabs per day/4 tabs per week Discontinued Reason: Doctor's Order 10 mg PO Q2H 30 days PRN 12 tabs 6RF migraine headache Coding Level of Care Code Est Pt Level 4 (15304) Diagnoses Migraine without aura and without status migrainosus, not intractable G43.009 Migraine type: migraine (< 15 days per month) without aura Status migrainosus presence: without status migrainosus Intractability: not intractable Menstrual migraine with status migrainosus, not intractable G43.821 Status migrainosus presence: with status migrainosus Intractability: not intractable Vitamin D deficiency E55.9
--- OUTSIDE RECORDS SUMMARY | 2024-12-10 08:02 | XMS_ITS | Encounter Summary ---
Author Organization [facility] Address [address] [place] [address] Phone Care Team Providers Care Claim Trainee Name Role Phone Mony Ahn MD Primary Care Provider Encounter Details Date Type Department Care Team (Late st Contact Info) Description 11/05/2013 Documentation [facility] [place] [address] [place] [address] Family Medicine, Physician [address] [place], [place] [id number] Social History Tobacco Use Types Packs/Day Years Used Date Smoking Tobacco: Never Assessed Comments Unknown Sex and Gender Information Value Date Recorded Sex Assigned at Not on file Legal Sex Female 4:54 PM EDT Gender Identity Not on file Sexual Orientation Not on file documented as of this encounter Plan of Treatment Not on file documented as of this encounter Visit Diagnoses Not on filedocumented in this encounter Care Teams Claim Trainee Relationship Specialty Start Date End Date Mony Ahn MD [address] [place] [id number] PCP - General 04/15/17 12/15/22 documented as of this encounter
--- OUTSIDE RECORDS SUMMARY | 2024-12-10 08:02 | XMS_ITS | Encounter Summary ---
Author Organization [facility] Address [address] [place] [id number] Phone Care Team Providers Care Sas Programmer Name Role Phone Mony Ahn MD Primary Care Provider [phone] Encounter Details Date Type Department Care Team (Late st Contact Info) Description 11/01/2014 Documentation [facility] [place] Family Medicine [address] [place] [address] Family Medicine, Physician [address] [place], [place] [id number] Social History Tobacco Use Types Packs/Day Years Used Date Smoking Tobacco: Never Comments:Never smoker Comments Unknown Sex and Gender Information Value Date Recorded Sex Assigned at Not on file Legal Sex Female 4:54 PM EDT Gender Identity Not on file Sexual Orientation Not on file documented as of this encounter Plan of Treatment Not on file documented as of this encounter Visit Diagnoses Not on filedocumented in this encounter Care Teams Sas Programmer Relationship Specialty Start Date End Date Mony Ahn MD [address] [place] [address] PCP - General 04/15/17 12/15/22 documented as of this encounter
--- OUTSIDE RECORDS SUMMARY | 2024-12-10 08:02 | XMS_ITS | Clinical Summary ---
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 Name Role Phone Unavailable Primary Care Provider Unavailabl e Immunizations Immunization Administration Dates Next Due DTP 02/15/1995,1994,1994 DTaP 5 12/17/1998,12/16/1997 H1N1 07/15/2009 HPV, Quadrivalent 12/11/2007,08/08/2007,06/05/20 07 Hep B, ped/adol 10/12/2010, 0,07/18/2009,02/15,1994 Hib (PRP-T) 02/15/1995,1994,1994 IPV 12/17/1998, 5,1994,10/11 Influenza Split 05/22/2012,09/10/2011,08/07/2010 Influenza, injectable, quadr ivalent, preservative free 11/06/2013 Influenza, injectable, trivalent 009,07/02/2008,06/05/2007,09/07,06/23/2005,07/10/2004 MMR 10/05/2001,12/17/1998,08/04/1995 Meningococcal Conj (Menactra) MCV4P 06/05/2007 Tdap 05/02/2006 Family History Relation Name Status Comments Father Alive Father: Asthma diabetes HTN Maternal Grandmother Alive Materna l aunt: Elevated cholesterol Mother Alive Mother: Migrain es Other grandfather: As thma Sister Alive Sister: Alive a nd well Social History Tobacco Use Types Packs/Day Years Used Date Smoking Tobacco: Never Comments:Never smoker Comments Unknown Sex and Gender Information Value Date Recorded Sex Assigned at Not on file Legal Sex Female 4:54 PM EDT Gender Identity Not on file Sexual Orientation Not on file Last Filed Vital Signs Vital Sign Reading Time Taken Comments Blood Pressure 113/61 07/05/2014 12:00 AM EDT Pulse 68 07/05/2014 12:00 AM EDT Temperature 36.8 ??C (98.3 ??F) 07/05/2014 12:00 AM E DT Respiratory Rate - - Oxygen Saturation - - Inhaled Oxygen Concentration - - Weight 49.3 kg (108 lb 9.6 oz) 07/05/2014 12:00 AM EDT Height 152.4 cm (5') 07/05/2014 12:00 AM EDT Body Mass Index 21.21 07/05/2014 12:00 AM EDT Plan of Treatment Health Maintenance Due Date Last Done Comments Varicella Vaccines (1 of 2 - 13+ 2-dose series) 2007 DTaP,Tdap,and Td Vaccines (7 - Td or Tdap) 05/02/2016 05/02/2006, 12/17/1998, 12/16/1997, Additional history exists Influenza Vaccines (#1) 2024 11/07/19 14, 05/22/2012, 09/10/2011, Additional history exists COVID-19 Vaccine ( season) 2024 HIB Vaccines Aged Out 02/15/1995, 12/04, 1994 No longer eligible based on patient's age to complete this topic IPV Vaccines Completed 12/17/1998, 02/03, 1994, Additional history exists MMR Vaccines Completed 10/05/2001, 12/04, 08/04/1995 Meningococcal Vaccine Aged Out 06/05/2007 No siddhartha valeria eligible based on patient's age to complete this topic HPV Vaccines Completed 12/11/2007, 12/2006, 06/05/2007 Hepatitis B Vaccines Completed 10/12/2010, 06/05/2010, 07/18/2009, Additional history exists Hepatitis A Vaccines Aged Out No long er eligible based on patient's age to complete this topic Men B Vaccine Aged Out No longer elig ible based on patient's age to complete this topic Pneumococcal Vaccine Aged Out No long er eligible based on patient's age to complete this topic Procedures * Due to [place] state law, this organization might not be sharing sensitive test results. Procedure Name Priority Date/Time Associated Diagnosis Comments CHLAMYDIA AND GONORRHEA, AMPLIFIED Routine 11/07/2013 4:16 PM EST from Last 3 Months or Most Recently Relevant to Health Maintenance Results * Due to [place] state law, this organization might not be sharing sensitive test results. * Chlamydia and Gonorrhoea, Amplified (11/07/2013 4:16 PM EST) URINE CHLAMYDIA AMP PROBE NEGATIVE [facility] Comment: NO CHLAMYDIA TRACHOMATIS RNA DETECTED IN THIS PATIENT'S SAMPLE. (REFERENCE RANGE/NORMAL VALUE: NOT DETECTED) URINE GC AMP PROBE NEGATIVE [facility] Comment: NO NEISSERIA GONORRHOEAE RNA DETECTED IN THIS PATIENT'S SAMPLE. (REFERENCE RANGE/NORMAL VALUE: NOT DETECTED) NOTE: THIS TEST USES COUNTER HOP-MEDIATED AMPLIFICATION METHOD TO DETECT rRNA FROM C.TRACHOMATIS AND N.GONORRHOEAE. A NEGATIVE RESULT DOES NOT PRECLUDE INFECTION. THE APTIMA COMBO 2 ASSAY IS NOT INTENDED FOR THE EVALUATION OF SUSPECTED SEXUAL ABUSE OR FOR OTHER MEDICO LEGAL INDICATIONS. THERAPEUTIC FAILURE OR SUCCESS CANNOT BE DETERMINED WITH THE APTIMA COMBO 2 ASSAY SINCE NUCLEIC ACID MAY PERSIST FOLLOWING APPROPRIATE ANTIMICROBIAL THERAPY. IN THE CASE OF A NEGATIVE URINE RESULT, TESTING OF AN ENDOCERVICAL (FEMALE) OR URETHRAL (MALE) SPECIMEN IS RECOMMENDED IF THERE IS HIGH CLINICAL SUSPICION OF INFECTION. Testing performed or reported by [facility], a Service of [facility], [address] [place] [address] Heriberto Spears, Manager Oracle Database 11/07/2013 4:16 PM EST Narrative [facility] - 11/07/2013 4:16 PM EST URINE CHLAMYDIA GC AMP PROBE us Mony Ahn MD LAB MICROBIOLOGY - GENERAL ORDERABLES Final Result [facility] [address] [place] [address], [place] from Last 3 Months or Most Recently Relevant to Health Maintenance
--- OUTSIDE RECORDS SUMMARY | 2024-12-10 08:02 | XMS_ITS | Encounter Summary ---
Author Organization [facility] Address [address] [place] [address] Phone Care Team Providers Care Emergency Vehicle Technician Name Role Phone Mony Ahn MD Primary Care Provider Encounter Details Date Type Department Care Team (Late st Contact Info) Description 04/21/2017 Conversion Encounter [facility] [address] [place] [address] Social History Tobacco Use Types Packs/Day Years [...] on filedocumented in this encounter Care Teams Emergency Vehicle Technician Relationship Specialty Start Date End Date Mony Ahn MD [address] [place] [address] PCP - General 04/15/17 12/15/22 documented as of this encounter
[2024-12-10 08:03] VITALS: BP 100/62; PULSE 56; O2SAT 99; BMI 32.0
--- OUTSIDE RECORDS SUMMARY | 2024-12-10 08:03 | XMS_ITS | Encounter Summary ---
Author Organization [facility] Address [address] [place] [phone] Phone Care Team Providers Care Finance Advisor Name Role Phone Mony Ahn MD Primary Care Provider Encounter Details Date Type Department Care Team (Late st Contact Info) Description 07/09/2014 Documentation [facility] [address] [place] [address] Family Medicine, Physician [address] [place], [place] [id number] Social History Tobacco Use Types Packs/Day Years [...] on filedocumented in this encounter Care Teams Finance Advisor Relationship Specialty Start Date End Date Mony Ahn MD [address] [place] [address] PCP - General 04/15/17 12/15/22 documented as of this encounter
== END 2024-12-10 08:43 | disposition home or self-care (01) ==
LOC: HO.HSMS 07:58
PROVIDERS: PCP Internal Medicine; Visit Provider Nurse Practitioner Family
DX: G43.009 Migraine without aura, not intractable, without status migrainosus (principal); G43.821 Menstrual migraine, not intractable, with status migrainosus; E55.9 Vitamin D deficiency, unspecified
CPT/HCPCS: 99214

== ENCOUNTER 2025-05-16 11:36 | Emergency (ER) | payer OTHER, SELFPAY ==
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
[2025-05-16 11:58] VITALS: BP 110/63; PULSE 60; RESP 16; TEMP 36.4; O2SAT 97; BMI 24.0
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
[2025-05-16 14:21] VITALS: BP 110/63; PULSE 60; RESP 16; TEMP 36.4; O2SAT 97
--- OUTSIDE RECORDS SUMMARY | 2025-05-16 17:27 | XMS_ITS | Encounter Summary ---
Author Organization [facility] Address [address] [place] [address] Phone Care Team Providers Care Certified Medical Coder Name Role Phone Mony Ahn MD Primary Care Provider Encounter Details Date Type Department Care Team (Late st Contact Info) Description 04/21/2017 Conversion Encounter [facility] [place] [address] [place] [address] Social History Tobacco Use Types Packs/Day Years [...] on filedocumented in this encounter Care Teams Certified Medical Coder Relationship Specialty Start Date End Date Mony Ahn MD [address] [place] [address] PCP - General 04/15/17 12/15/22 documented as of this encounter
--- OUTSIDE RECORDS SUMMARY | 2025-05-16 17:27 | XMS_ITS | Encounter Summary ---
Author Organization [facility] Address [address] [place] [address] Phone Care Team Providers Care Sterile Processing Tech Name Role Phone Mony Ahn MD Primary Care Provider Encounter Details Date Type Department Care Team (Late st Contact Info) Description 11/01/2014 Documentation [facility] [place] Medicine [address] [place] [address] Family Medicine, Physician [address] [place], [place] [phone] Social History Tobacco Use Types Packs/Day Years [...] on filedocumented in this encounter Care Teams Sterile Processing Tech Relationship Specialty Start Date End Date Mony Ahn MD [address] [place] [address] PCP - General 04/15/17 12/15/22 documented as of this encounter
--- OUTSIDE RECORDS SUMMARY | 2025-05-16 17:27 | XMS_ITS | Encounter Summary ---
Author Organization [facility] Address [address] [place] [address] Phone Care Team Providers Care Personal Attendant Name Role Phone Mony Ahn MD Primary Care Provider Encounter Details Date Type Department Care Team (Late st Contact Info) Description 11/05/2013 Documentation [facility] [place] Family Medicine [address] [place] [address] Family Medicine, Physician [address] [place], [place] [phone] Social History Tobacco Use Types Packs/Day Years [...] on filedocumented in this encounter Care Teams Personal Attendant Relationship Specialty Start Date End Date Mony Ahn MD [address] [place] [address] PCP - General 04/15/17 12/15/22 documented as of this encounter
--- OUTSIDE RECORDS SUMMARY | 2025-05-16 17:27 | XMS_ITS | Clinical Summary ---
Author Organization [facility] Address [address] [place] [address] Phone Care Team Providers Care Senior It Assistant Name Role Phone Unavailable Primary Care Provider [...] 68 07/05/2014 12:00 AM EDT Temperature 36.8 C (98.3 F) 07/05/2014 12:00 AM EDT Respiratory Rate - - Oxygen Saturation - [...] 12/16/1997, Additional history exists Influenza Vaccines (#1) 2025 11/07/19 14, 05/22/2012, 09/10/2011, Additional history exists COVID-19 Vaccine ( season) 2025 HIB Vaccines Aged Out 02/15/1995, 12/04, 1994 [...] complete this topic Procedures * Due to [place] state law, this organization might not be sharing sensitive test results. Procedure Name Priority Date/Time Associated Diagnosis Comments CHLAMYDIA AND GONORRHEA, AMPLIFIED Routine 11/07/2013 4:16 PM EST from Last 3 Months or Most Recently Relevant to Health Maintenance Results * Due to [place] state law, this organization might not be sharing sensitive test results. * Chlamydia and Gonorrhoea, Amplified (11/07/2013 4:16 PM EST) URINE CHLAMYDIA AMP PROBE NEGATIVE [facility] Comment: NO CHLAMYDIA TRACHOMATIS RNA DETECTED IN THIS PATIENT'S SAMPLE. (REFERENCE RANGE/NORMAL VALUE: NOT DETECTED) URINE GC AMP PROBE NEGATIVE [facility] Comment: NO NEISSERIA GONORRHOEAE RNA DETECTED IN THIS PATIENT'S SAMPLE. (REFERENCE RANGE/NORMAL VALUE: NOT DETECTED) NOTE: THIS TEST USES WAREHOUSE SHIFT SUPERVISOR-MEDIATED AMPLIFICATION METHOD TO DETECT rRNA FROM C.TRACHOMATIS [...] OF INFECTION. Testing performed or reported by [facility], a Service of [facility], [address] [place] [address] Heriberto Spears, Brass Roller 11/07/2013 4:16 PM EST Narrative [facility] - 11/07/2013 4:16 PM EST URINE CHLAMYDIA GC AMP PROBE us Mony Ahn MD LAB MICROBIOLOGY - GENERAL ORDERABLES Final Result [facility] [address] [place] [address], [place] from Last 3 Months or Most Recently Relevant to Health Maintenance
--- OUTSIDE RECORDS SUMMARY | 2025-05-16 17:27 | XMS_ITS | Encounter Summary ---
Author Organization [facility] Address [address] [place] [address] Phone Care Team Providers Care Stopper Maker Name Role Phone Mony Ahn MD Primary Care Provider [phone] Encounter Details Date Type Department Care Team (Late st Contact Info) Description 07/09/2014 Documentation [facility] [place] [address] [place] [address] Family Medicine, Physician [address] [place], [place] [phone] Social History Tobacco Use Types Packs/Day Years [...] on filedocumented in this encounter Care Teams Stopper Maker Relationship Specialty Start Date End Date Mony Ahn MD [address] [place] [address] PCP - General 04/15/17 12/15/22 documented as of this encounter
== END 2025-05-16 14:21 | disposition home or self-care (01) ==
PROVIDERS: Emergency Provider Emergency Medicine; PCP Internal Medicine
DX: S39.012A Strain of muscle, fascia and tendon of lower back, initial encounter (principal); V43.52XA Car driver injured in collision with other type car in traffic accident, initial encounter; Y93.89 Activity, other specified; Y92.488 Other paved roadways as the place of occurrence of the external cause; Y99.8 Other external cause status
CPT/HCPCS: 72100; 99282; 99283

== ENCOUNTER → 2025-05-16 12:00 | Outpatient (BNV) | payer OTHER, SELFPAY | PROVIDERS: Emergency Provider Emergency Medicine; PCP Internal Medicine; Visit Provider Radiology Diagnostic Radiology | DX: M51.35 Other intervertebral disc degeneration, thoracolumbar region (principal) | CPT/HCPCS: 72100 ==

== ENCOUNTER 2025-06-11 07:55 | Outpatient (AMB) | payer OTHER, SELFPAY ==
--- OUTSIDE RECORDS SUMMARY | 2025-06-11 08:03 | XMS_ITS | Encounter Summary ---
Author Organization [facility] Address [address] [place] [address] Phone Care Team Providers Care Maintenance Shop Laborer Name Role Phone Mony Ahn MD Primary Care Provider [phone] Encounter Details Date Type Department Care Team (Late st Contact Info) Description 11/05/2013 Documentation [facility] [place] [address] [place] [address] Family Medicine, Physician [address] [place], [place] [phone] Social History Tobacco Use Types Packs/Day Years [...] on filedocumented in this encounter Care Teams Maintenance Shop Laborer Relationship Specialty Start Date End Date Mony Ahn MD [address] [place] [address] PCP - General 04/15/17 12/15/22 documented as of this encounter
--- OUTSIDE RECORDS SUMMARY | 2025-06-11 08:03 | XMS_ITS | Encounter Summary ---
Author Organization [facility] Address [address] [place] [address] Phone Care Team Providers Care Chief Information Officer Name Role Phone Mony Ahn MD Primary Care Provider Encounter Details Date Type Department Care Team (Late st Contact Info) Description 04/21/2017 Conversion Encounter [facility] [place] [address] [place] [address] Social History Tobacco Use Types Packs/Day Years [...] on filedocumented in this encounter Care Teams Chief Information Officer Relationship Specialty Start Date End Date Mony Ahn MD [address] [place] [address] PCP - General 04/15/17 12/15/22 documented as of this encounter
--- OUTSIDE RECORDS SUMMARY | 2025-06-11 08:03 | XMS_ITS | Encounter Summary ---
Author Organization [facility] Address [address] [place] [address] Phone Care Team Providers Care Forensic Nurse Name Role Phone Mony Ahn MD Primary Care Provider Encounter Details Date Type Department Care Team (Late st Contact Info) Description 11/01/2014 Documentation [facility] [place] [address] [place] [address] Family Medicine, Physician [address] [place], [place] [phone] Social History Tobacco Use Types Packs/Day Years [...] on filedocumented in this encounter Care Teams Forensic Nurse Relationship Specialty Start Date End Date Mony Ahn MD [address] [place] [address] PCP - General 04/15/17 12/15/22 documented as of this encounter
--- OUTSIDE RECORDS SUMMARY | 2025-06-11 08:03 | XMS_ITS | Clinical Summary ---
Author Organization [facility] Address [address] [place] [address] Phone Care Team Providers Care Technical Data Analyst Name Role Phone Unavailable Primary Care Provider [...] 05/22/2012, 09/10/2011, Additional history exists COVID-19 Vaccine (2024- season) 2025 HIB Vaccines Aged Out 02/15/1995, [...] complete this topic Procedures * Due to [place] state law, this organization might not be sharing sensitive test results. Procedure Name Priority Date/Time Associated Diagnosis Comments CHLAMYDIA AND GONORRHEA, AMPLIFIED Routine 11/07/2013 4:16 PM EST from Last 3 Months or Most Recently Relevant to Health Maintenance Results * Due to [place] state law, this organization might not be sharing sensitive test results. * Chlamydia and Gonorrhoea, Amplified (11/07/2013 4:16 PM EST) URINE CHLAMYDIA AMP PROBE NEGATIVE [facility] Comment: NO CHLAMYDIA TRACHOMATIS RNA DETECTED IN THIS PATIENT'S SAMPLE. (REFERENCE RANGE/NORMAL VALUE: NOT DETECTED) URINE GC AMP PROBE NEGATIVE [facility] Comment: NO NEISSERIA GONORRHOEAE RNA DETECTED IN THIS PATIENT'S SAMPLE. (REFERENCE RANGE/NORMAL VALUE: NOT DETECTED) NOTE: THIS TEST USES RESIDENTIAL TREATMENT COUNSELOR-MEDIATED AMPLIFICATION METHOD TO DETECT rRNA FROM C.TRACHOMATIS [...] OF INFECTION. Testing performed or reported by [facility], a Service of [facility], [address] [place] [address] Heriberto Spears, Forest Pathology Teacher 11/07/2013 4:16 PM EST Narrative [facility] - 11/07/2013 4:16 PM EST URINE CHLAMYDIA GC AMP PROBE us Mony Ahn MD LAB MICROBIOLOGY - GENERAL ORDERABLES Final Result [facility] [address] [place] [address], [place] from Last 3 Months or Most Recently Relevant to Health Maintenance
--- OUTSIDE RECORDS SUMMARY | 2025-06-11 08:03 | XMS_ITS | Encounter Summary ---
Author Organization [facility] Address [address] [place] [address] Phone Care Team Providers Care Roving Changer Name Role Phone Mony Ahn MD Primary Care Provider Encounter Details Date Type Department Care Team (Late st Contact Info) Description 07/09/2014 Documentation [facility] [place] Family Medicine [address] [place] [address] Family Medicine, Physician [address] [place], [place] [phone] Social History Tobacco Use Types Packs/Day Years [...] on filedocumented in this encounter Care Teams Roving Changer Relationship Specialty Start Date End Date Mony Ahn MD [address] [place] [address] PCP - General 04/15/17 12/15/22 documented as of this encounter
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
[2025-06-11 08:07] VITALS: BP 120/72; PULSE 53; O2SAT 98
== END 2025-06-11 08:58 | disposition home or self-care (01) ==
LOC: HO.HSMS 07:56
PROVIDERS: PCP Internal Medicine; Visit Provider Nurse Practitioner Family
DX: G43.009 Migraine without aura, not intractable, without status migrainosus (principal); G43.821 Menstrual migraine, not intractable, with status migrainosus; E55.9 Vitamin D deficiency, unspecified
CPT/HCPCS: 99214

== ENCOUNTER 2025-06-11 07:55 | Outpatient (REF) | payer OTHER, SELFPAY ==
[2025-06-11 13:22] LABS: MANUAL DIFF FLAG NO
[2025-06-11 13:31] LABS: Hematocrit 41.5 % (37.0-47.0); Hemoglobin 13.8 g/dl (12.0-16.0); Imm Gran Abs Auto 0.02 X10*3/uL (0.00-0.03); Imm Gran Pct Auto 0.3 % (0.0-0.4); Lymphocytes Absolute Auto 1.7 X10*3/uL (1.2-4.9); Mean Corpuscular HGB Conc 33.3 g/dl (31.0-35.0); Mean Corpuscular Hemoglobin 30.6 pg (27.0-33.0); Mean Corpuscular Volume 92.0 fL (80.0-98.0); NRBC Abs Auto 0.000 X10*3/uL (0.0-0.012); NRBC Pct Auto 0.0 /100WBC (0.0-0.2); Platelet Count 220 X10*3/uL (160-400); Red Blood Count 4.51 X10*6/uL (4.20-5.50); White Blood Count 6.1 X10*3/uL (4.8-10.8)
[2025-06-11 14:11] LABS: Alanine Aminotransferase 21 U/L (0-31); Albumin Level 4.4 g/dL (3.5-5.0); Alkaline Phosphatase 75 U/L (39-117); Anion Gap 11 (12-20); Aspartate Amino Transferase 26 U/L (5-31); Blood Urea Nitrogen 12 mg/dL (9-16); Calcium 9.2 mg/dL (8.4-10.2); Carbon Dioxide 26 mmol/L (22-29); Chloride 108 mmol/L (96-108); Estimated Glomerular Filt Rate > 60; Potassium 4.9 mmol/L (3.3-5.1); Sodium 140 mmol/L (135-145); Total Protein 7.4 g/dL (6.5-8.0)
== END 2025-06-11 07:56 | disposition home or self-care (01) ==
LOC: HO.HKASLDS 07:55
PROVIDERS: PCP Internal Medicine; Visit Provider Nurse Practitioner Family
DX: G43.009 Migraine without aura, not intractable, without status migrainosus (principal); G43.821 Menstrual migraine, not intractable, with status migrainosus; E55.9 Vitamin D deficiency, unspecified; R53.83 Other fatigue; F41.9 Anxiety disorder, unspecified; Z79.899 Other long term (current) drug therapy
CPT/HCPCS: 36415; 80053; 85025

== ENCOUNTER 2025-09-03 09:01 | Outpatient (REF) | payer OTHER, SELFPAY ==
[2025-09-03 09:19] LABS: MANUAL DIFF FLAG NO
[2025-09-03 09:43] LABS: Hematocrit 40.8 % (37.0-47.0); Hemoglobin 13.7 g/dl (12.0-16.0); Imm Gran Abs Auto 0.00 X10*3/uL (0.00-0.03); Imm Gran Pct Auto 0.0 % (0.0-0.4); Lymphocytes Absolute Auto 1.7 X10*3/uL (1.2-4.9); Mean Corpuscular HGB Conc 33.6 g/dl (31.0-35.0); Mean Corpuscular Hemoglobin 30.7 pg (27.0-33.0); Mean Corpuscular Volume 91.5 fL (80.0-98.0); NRBC Abs Auto 0.000 X10*3/uL (0.0-0.012); NRBC Pct Auto 0.0 /100WBC (0.0-0.2); Platelet Count 226 X10*3/uL (160-400); Red Blood Count 4.46 X10*6/uL (4.20-5.50); White Blood Count 5.3 X10*3/uL (4.8-10.8)
--- OUTSIDE RECORDS SUMMARY | 2025-09-03 11:16 | XMS_ITS | Encounter Summary ---
Author Organization [facility] Address [address] [place] [address] Phone Care Team Providers Care Affiliate Marketing Manager Name Role Phone Mony Ahn MD Primary Care Provider Encounter Details Date Type Department Care Team (Late st Contact Info) Description 07/09/2014 Documentation [facility] [place] [address] [place] [address] Family Medicine, Physician [address] [place], [place] [phone] Social History Tobacco Use Types Packs/Day Years [...] on filedocumented in this encounter Care Teams Affiliate Marketing Manager Relationship Specialty Start Date End Date Mony Ahn MD [address] [place] [address] PCP - General 04/15/17 12/15/22 documented as of this encounter
--- OUTSIDE RECORDS SUMMARY | 2025-09-03 11:16 | XMS_ITS | Encounter Summary ---
Author Organization [facility] Address [address] [place] [address] Phone Care Team Providers Care Picture Frame Maker Name Role Phone Mony Ahn MD Primary Care Provider Encounter Details Date Type Department Care Team (Late st Contact Info) Description 11/05/2013 Documentation [facility] [place] Family [place] [address] [place] [address] Family Medicine, Physician [address] [place], [place] [phone] Social History Tobacco Use Types Packs/Day Years [...] on filedocumented in this encounter Care Teams Picture Frame Maker Relationship Specialty Start Date End Date Mony Ahn MD [address] [place] [address] PCP - General 04/15/17 12/15/22 documented as of this encounter
--- OUTSIDE RECORDS SUMMARY | 2025-09-03 11:16 | XMS_ITS | Clinical Summary ---
Author Organization [facility] Address [address] [place] [address] Phone Care Team Providers Care Gill Box Tender Name Role Phone Unavailable Primary Care Provider [...] complete this topic Procedures * Due to [place] state law, this organization might not be sharing sensitive test results. Procedure Name Priority Date/Time Associated Diagnosis Comments CHLAMYDIA AND GONORRHEA, AMPLIFIED Routine 11/07/2013 4:16 PM EST from Last 3 Months or Most Recently Relevant to Health Maintenance Results * Due to [place] state law, this organization might not be [...] VALUE: NOT DETECTED) NOTE: THIS TEST USES SPRING WINDER-MEDIATED AMPLIFICATION METHOD TO DETECT rRNA FROM C.TRACHOMATIS [...] OF INFECTION. Testing performed or reported by [facility], a Service of [facility], [address] [place] [address] Heriberto Spears, Netbackup Engineer 11/07/2013 4:16 PM EST Narrative [facility] - 11/07/2013 4:16 PM EST URINE CHLAMYDIA GC AMP PROBE us Mony Ahn MD LAB MICROBIOLOGY - GENERAL ORDERABLES Final Result [facility] [address] [place] [address], [place] from Last 3 Months or Most Recently Relevant to Health Maintenance
--- OUTSIDE RECORDS SUMMARY | 2025-09-03 11:16 | XMS_ITS | Encounter Summary ---
Author Organization [facility] Address [address] [place] [address] Phone Care Team Providers Care Nib Assembler Name Role Phone Mony Ahn MD Primary Care Provider [phone] Encounter Details Date Type Department Care Team (Late st Contact Info) Description 11/01/2014 Documentation [facility] [place] Family Medicine [address] [place] [address] Family Medicine, Physician [address] [place], [place] [phone] Social History Tobacco Use Types Packs/Day Years [...] on filedocumented in this encounter Care Teams Nib Assembler Relationship Specialty Start Date End Date Mony Ahn MD [address] [place] [address] PCP - General 04/15/17 12/15/22 documented as of this encounter
--- OUTSIDE RECORDS SUMMARY | 2025-09-03 11:16 | XMS_ITS | Encounter Summary ---
Author Organization [facility] Address [address] [place] [address] Phone Care Team Providers Care Furniture Upholsterer Apprentice Name Role Phone Mony Ahn MD Primary Care Provider Encounter Details Date Type Department Care Team (Late st Contact Info) Description 04/21/2017 Conversion Encounter [facility] [place] [address] [place] [address] Social History Tobacco Use Types Packs/Day Years [...] on filedocumented in this encounter Care Teams Furniture Upholsterer Apprentice Relationship Specialty Start Date End Date Mony Ahn MD [address] [place] [address] PCP - General 04/15/17 12/15/22 documented as of this encounter
[2025-09-03 12:05] LABS: Alanine Aminotransferase 43 U/L (0-31); Albumin Level 4.4 g/dL (3.5-5.0); Alkaline Phosphatase 68 U/L (39-117); Anion Gap 11 (12-20); Aspartate Amino Transferase 34 U/L (5-31); Blood Urea Nitrogen 13 mg/dL (9-16); Calcium 8.9 mg/dL (8.4-10.2); Carbon Dioxide 22 mmol/L (22-29); Chloride 112 mmol/L (96-108); Cholesterol 196 mg/dL (<200); Estimated Glomerular Filt Rate > 60; HDL Cholesterol 48 mg/dL (>40); Potassium 4.0 mmol/L (3.3-5.1); Sodium 141 mmol/L (135-145); Total Protein 7.2 g/dL (6.5-8.0); Triglycerides 81 mg/dL (<150)
== END 2025-09-03 09:02 | disposition home or self-care (01) ==
LOC: HO.LAB 09:01
PROVIDERS: PCP Internal Medicine; Visit Provider Internal Medicine
DX: Z13.6 Encounter for screening for cardiovascular disorders (principal); R53.83 Other fatigue; E55.9 Vitamin D deficiency, unspecified
CPT/HCPCS: 36415; 80053; 80061; 82306; 84443; 85025